=== PATIENT | female | born 1940 | race Caucasian/White ===

== ENCOUNTER 2022-11-03 01:03 | Inpatient (IN) | payer MEDICARE ==
--- NOTE | 2022-11-03 01:21 | ED ---
Abdominal Pain HPI - General Stated Complaint: Bowel Obstruction Time Seen by Provider: 11/03/22 01:15 - History of Present Illness Initial Comments: 82-year-old female with past history of hypertension and hyperlipidemia presents to the emergency department as a transfer from [facility]. States that she started having abdominal pain at 3 AM in the morning. She didn't want to go to the ER due to cost reasons and therefore waited until the afternoon 1 her primary care doctor was able to get her in. They were concerned and told her to go into the emergency department for evaluation. She states that she was having significant periumbilical abdominal pain that radiated to the left and right. Laboratory studies were conducted and a CT was performed. White blood cell count 5. Hemoglobin 13.9. Sodium was 134. Urinalysis demonstrated 3+ ketones but no other findings. CT was performed which demonstrated multiple dilated small bowel loops with air-fluid level suggestive of partial mechanical obstruction. Transition point not seen. She was given 4 mg of morphine and 4 mg of Zofran. She did have vomiting prior to going into the emergency department however has been relatively pain free and nausea free since medication administration. He continues to have bowel movements. No black or bloody stools. No fevers. No chest pain. No urinary complaints. No other alleviating, precipitating or modifying factors - Related Data Home Medications Medication Instructions Recorded Confirmed Simvastatin [Zocor] 10 mg PO PC-LUNCH 07/18/17 11/03/22 Calcium Carbonate [Calcium] 600 mg PO DAILY 11/03/22 11/03/22 Losartan/Hydrochlorothiazide 1 tab PO DAILY 11/03/22 11/03/22 [Hyzaar 100-12.5 Tablet] Multivitamins, Thera [Multivitamin 1 tab PO DAILY 11/03/22 11/03/22 (formulary)] Allergies Allergy/AdvReac Type Severity Reaction Status Date / Time sulfamethoxazole Allergy Fingers Verified 11/08/22 14:36 [From Bactrim] went numb, nausea, vomiting, dizziness trimethoprim [From Bactrim] Allergy Fingers Verified 11/08/22 14:36 went numb, nausea, vomiting, dizziness Review of Systems ROS Statement: Those systems with pertinent positive or pertinent negative responses have been documented in the HPI. ROS Other: All systems not noted in ROS Statement are negative. Past Medical History Past Medical History: Hyperlipidemia, Hypertension History of Any Multi-Drug Resistant Organisms: ESBL Date of last positivie culture/infection: e.coli 2017 MDRO Source:: urine Past Surgical History: Bladder Surgery, Hysterectomy, Tubal Ligation Additional Past Surgical History / Comment(s): vaginal/rectal , left sided tumor removal Past Anesthesia/Blood Transfusion Reactions: No Reported Reaction Past Psychological History: No Psychological Hx Reported Past Alcohol Use History: None Reported Past Drug Use History: None Reported General Exam General appearance: alert, in no apparent distress Head exam: Present: atraumatic, normocephalic, normal inspection Eye exam: Present: normal appearance, PERRL, EOMI. Absent: scleral icterus, conjunctival injection, periorbital swelling ENT exam: Present: normal exam, mucous membranes moist Neck exam: Present: normal inspection. Absent: tenderness, meningismus, lymphadenopathy Respiratory exam: Present: normal lung sounds bilaterally. Absent: respiratory distress, wheezes, rales, rhonchi, stridor Cardiovascular Exam: Present: regular rate, normal rhythm, normal heart sounds. Absent: systolic murmur, diastolic murmur, rubs, gallop, clicks GI/Abdominal exam: Present: soft, normal bowel sounds. Absent: distended, tenderness, guarding, rebound, rigid Extremities exam: Present: normal inspection, full ROM, normal capillary refill. Absent: tenderness, pedal edema, joint swelling, calf tenderness Back exam: Present: normal inspection Neurological exam: Present: alert, oriented X3, CN II-XII intact Psychiatric exam: Present: normal affect, normal mood Skin exam: Present: warm, dry, intact, normal color. Absent: rash Course Vital Signs 11/03/22 11/03/22 01:14 02:00 Temperature 98.0 F 97.9 F Pulse Rate 71 Pulse Rate [ 65 Pulse Oximetery ] Respiratory 16 17 Rate Blood Pressure 144/75 Blood Pressure 150/70 [Left Arm] O2 Sat by Pulse 99 100 Oximetry Medical Decision Making - Medical Decision Making Was pt. sent in by a medical professional or institution (, PA, LITIGATION MANAGER, urgent care, hospital, or care home...) When possible be specific @ -[facility] Did you speak to anyone other than the patient for history (EMS, parent, family, police, friend...)? What history was obtained from this source @ -transferring doc Did you review nursing and triage notes (agree or disagree)? Why? @ -I reviewed and agree with nursing and triage notes Were old charts reviewed (outside hosp., previous admission, EMS record, old EKG, old radiological studies, urgent care reports/EKG's, care home records)? Report findings @ -charts were reviewed from today from outside hospital Differential Diagnosis (chest pain, altered mental status, abdominal pain women, abdominal pain men, vaginal bleeding, weakness, fever, dyspnea, syncope, headache, dizziness, GI bleed, back pain, seizure, CVA, palpatations, mental health, musculoskeletal)? @ SBO, colonic mass, scar tissue, ileus EKG interpreted by me (3pts min.). @ -No X-rays interpreted by me (1pt min.). @ -Not done CT interpreted by me (1pt min.). @ -None done U/S interpreted by me (1pt. min.). @ -None done What testing was considered but not performed or refused? (CT, X-rays, U/S, labs)? Why? @ -None What meds were considered but not given or refused? Why? @ -Pain meds but patient resting comfortably right now Did you discuss the management of the patient with other professionals (professionals i.e. , PA, LITIGATION MANAGER, lab, RT, psych nurse, social service coordinator, apartment rental agent, teacher, chief risk officer, pillowcase cutter)? Give summary @ -Dr. Castellanos Was smoking cessation discussed for >3mins.? @ -No Was critical care preformed (if so, how long)? @ -No Were there social determinants of health that impacted care today? How? (Homelessness, low income, unemployed, alcoholism, drug addiction, transportation, low edu. Level, literacy, decrease access to med. care, half-way, rehab)? @ -low income - patient did not go to the hospital when pain started Was there de-escalation of care discussed even if they declined (Discuss DNR or withdrawal of care, Hospice)? DNR status @ -No What co-morbidities impacted this encounter? (DM, HTN, Smoking, COPD, CAD, Cancer, CVA, ARF, Chemo, Hep., AIDS, mental health diagnosis, sleep apnea, morbid obesity)? @ -None Was patient admitted / discharged? Hospital course, mention meds given and route, prescriptions, significant lab abnormalities, going to OR and other pertinent info. Upon arrival patient was placed into room 15. I did review the patient transfer record. Called and spoke with Dr. Castellanos who requested that the patient be admitted to medicine with surgery on consult. We did hold off on NG tube at this time however patient remains nothing by mouth Undiagnosed new problem with uncertain prognosis? @ -Yes Drug Therapy requiring intensive monitoring for toxicity (Heparin, Nitro, Insulin, Cardizem)? @ -No Were any procedures done? @ -No Diagnosis/symptom? @ -acute sbo Acute, or Chronic, or Acute on Chronic? @ -acute Uncomplicated (without systemic symptoms) or Complicated (systemic symptoms)? @ -complicated Side effects of treatment? @ -None Exacerbation, Progression, or Severe Exacerbation? @ -No Poses a threat to life or bodily function? How? (Chest pain, [place], [place], pneumonia, PE, COPD, DKA, ARF, appy, cholecystitis, CVA, Diverticulitis, Homicidal, Suicidal, threat to staff... and all critical care pts) @ -Yes - Lab Data Result diagrams: 11/09/22 06:04 11/11/22 05:44 Disposition Clinical Impression: Small bowel obstruction, Nausea and vomiting, Abdominal pain Disposition: ADMITTED IP TO THIS HOSP Condition: Stable Is patient prescribed a controlled substance at d/c from ED?: No Time of Disposition: 01:38 Decision to Admit Reason: Admit from EC Decision Date: 11/03/22 Decision Time: 01:38
[2022-11-03] MEDS ORDERED: MORPHINE SULFATE 4 MG/ML SYRINGE IV PRN (01:38)
[2022-11-03] MEDS ORDERED: NALOXONE 0.4 MG/ML 1 ML VIAL IV PRN (01:38)
[2022-11-03] MEDS: SODIUM CHLORIDE 0.9% 1,000 ML IV SCH ×2 (01:47→02:38)
[2022-11-03 10:26] LABS: HCT 41.9 % (34.0-46.0); MCH 29.1 pg (25.0-35.0); MCHC 33.3 g/dL (31.0-37.0); MCV 87.4 fL (80.0-100.0); Mean Platelet Volume 7.5; Platelet Count 216 k/uL (150-450); RDW 12.9 % (11.5-15.5); WBC 4.2 k/uL (3.8-10.6)
[2022-11-03 10:44] LABS: ALT 21 U/L (4-34); AST 27 U/L (14-36); African American GFR (CKD) >90 (>60 ml/min/1.73 sqM); Albumin 4.1 g/dL (3.5-5.0); Albumin/Globulin Ratio 1.6; Alkaline Phosphatase 74 U/L (38-126); Anion Gap 11 mmol/L; Blood Urea Nitrogen 10 mg/dL (7-17); Calcium 8.5 mg/dL (8.4-10.2); Carbon Dioxide 22 mmol/L (22-30); Chloride 101 mmol/L (98-107); Globulin 2.5 g/dL; Glucose 106 mg/dL (74-99); Non-African American GFR(CKD) 89 (>60 ml/min/1.73 sqM); Potassium 3.7 mmol/L (3.5-5.1); Sodium 134 mmol/L (137-145); Total Bilirubin 0.6 mg/dL (0.2-1.3); Total Protein 6.6 g/dL (6.3-8.2)
[2022-11-03] MEDS: ENOXAPARIN 40 MG/0.4 ML SYRINGE SQ SCH (11:33)
--- NOTE | 2022-11-03 12:27 | P.GSCN ---
History of Present Illness Consult date: 11/03/22 History of present illness: CHIEF COMPLAINT: Abdominal pain HISTORY OF PRESENT ILLNESS: This is a 82-year-old female who initially presented to [facility] due to abdominal pain. Patient reports that she had abdomen pain around the umbilical area. She's been having nausea and vomiting. The pain started yesterday. However she did report decreased appetite on Sunday. She initially thought she may have had food poisoning after eating Malay on Sunday. However she continued to have increased lower abdominal pain. She hasn't stopped having flatus. At her last bowel movement was on Sunday. Patient denies any prior history of bowel obstruction. Her past abdominal surgical history includes a bladder suspension repair of vaginal prolapse. Hysterectomy and tubal ligation. Patient had a computed tomography scan abdomen and pelvis at [place] that showed multiple dilated small bowel loops with air-fluid levels suggestive partial mechanical obstruction. Transition point not seen. Minimal free fluid in the abdomen. Patient reports that she is feeling better today than yesterday. Her pain and nausea are worse with walking. Reports no further vomiting. PAST MEDICAL HISTORY: See below PAST SURGICAL HISTORY: See below MEDICATIONS: See below ALLERGIES: See below SOCIAL HISTORY: No illicit drug use. REVIEW OF SYSTEMS: CONSTITUTIONAL: Denies fever or chills. HEENT: Denies blurred vision, vision changes, or eye pain. Denies hemoptysis CARDIOVASCULAR: Denies chest pain or pressure. RESPIRATORY: No shortness of breath. GASTROINTESTINAL: See HPI for pertinent findings HEMATOLOGIC: Denies bleeding disorders. GENITOURINARY: Denies any blood in urine or increased urinary frequency. SKIN: Denies pruitis. Denies rash. PHYSICAL EXAM: VITAL SIGNS: Reviewed GENERAL: Well-developed in no acute distress. HEENT: No sclera icterus. Extraocular movements grossly intact. Moist buccal mucosa. Head is atraumatic, normocephalic. No nasal drainage. ABDOMEN: Soft. Mildly distended. Tenderness on palpation of the lower mid abdomen below the umbilicus NEUROLOGIC: Alert and oriented. Cranial nerves II through XII grossly intact. LABORATORY DATA: WBC is 4.2 Hgb 14.0 platelets 216 Sodium 134 potassium 3.7 creatinine 0.54 LFTs normal IMAGING: Computed tomography scan findings as stated above ASSESSMENT: 1. Partial mechanical small bowel obstruction 2. History of multiple abdominal surgeries PLAN: -Keep patient nothing by mouth -Continue IV fluids -Continue pain medication and antiemetics as needed -Encourage patient to ambulate -If patient has increasing pain or nausea with vomiting we'll need to place NG tube -Further recommendations forthcoming prescription Physician Housekeeper/Custodian/Laundry Worker note has been reviewed by physician. Signing provider agrees with the documented findings, assessment, and plan of care. I have personally seen and examined the patient, reviewed the LEGAL PARAPROFESSIONAL /PAs history, exam and MDM and agree with the assessment and plan as written. Based on total visit time, I have performed more than 50% of the visit. As above: Patient with small bowel obstruction based on CAT scan at outside institution. She is feeling much better today. She did have a episode of emesis today. Denies bloating. She had a small bowel movement today. Keep nothing by mouth. Repeat abdominal x-rays tomorrow. If symptoms persist we'll plan Gastrografin small bowel series on Sunday. Past Medical History Past Medical History: Hyperlipidemia, Hypertension History of Any Multi-Drug Resistant Organisms: ESBL Year Discovered:: e.coli 2017 MDRO Source:: urine Past Surgical History: Bladder Surgery, Hysterectomy, Tubal Ligation Additional Past Surgical History / Comment(s): vaginal/rectal , left sided tumor removal Past Anesthesia/Blood Transfusion Reactions: No Reported Reaction Past Psychological History: No Psychological Hx Reported Past Alcohol Use History: None Reported Past Drug Use History: None Reported Medications and Allergies Home Medications Medication Instructions Recorded Confirmed Type Simvastatin [Zocor] 10 mg PO PC-LUNCH 07/18/17 11/03/22 History Calcium Carbonate [Calcium] 600 mg PO DAILY 11/03/22 11/03/22 History Losartan/Hydrochlorothiazide 1 tab PO DAILY 11/03/22 11/03/22 History [Hyzaar 100-12.5 Tablet] Multivitamins, Thera [Multivitamin 1 tab PO DAILY 11/03/22 11/03/22 History (formulary)] Allergies Allergy/AdvReac Type Severity Reaction Status Date / Time sulfamethoxazole Allergy Fingers Verified 11/03/22 08:07 [From Bactrim] went numb, nausea, vomiting, dizziness trimethoprim [From Bactrim] Allergy Fingers Verified 11/03/22 08:07 went numb, nausea, vomiting, dizziness Surgical - Exam Vital Signs Temp Pulse Resp BP Pulse Ox 98.0 F 71 16 144/75 99 11/03/22 01:14 11/03/22 01:14 11/03/22 01:14 11/03/22 01:14 11/03/22 01:14 Results - Labs 11/03/22 09:40 11/03/22 09:40 Abnormal Lab Results - Last 24 Hours (Table) 11/03/22 Range/Units 09:40 Sodium 134 L (137-145) mmol/L Glucose 106 H (74-99) mg/dL Diabetes panel 11/03/22 Range/Units 09:40 Sodium 134 L (137-145) mmol/L Potassium 3.7 (3.5-5.1) mmol/L Chloride 101 (98-107) mmol/L Carbon Dioxide 22 (22-30) mmol/L BUN 10 (7-17) mg/dL Creatinine 0.54 (0.52-1.04) mg/dL Glucose 106 H (74-99) mg/dL Calcium 8.5 (8.4-10.2) mg/dL AST 27 (14-36) U/L ALT 21 (4-34) U/L Alkaline Phosphatase 74 (38-126) U/L Total Protein 6.6 (6.3-8.2) g/dL Albumin 4.1 (3.5-5.0) g/dL Calcium panel 11/03/22 Range/Units 09:40 Calcium 8.5 (8.4-10.2) mg/dL Albumin 4.1 (3.5-5.0) g/dL Pituitary panel 11/03/22 Range/Units 09:40 Sodium 134 L (137-145) mmol/L Potassium 3.7 (3.5-5.1) mmol/L Chloride 101 (98-107) mmol/L Carbon Dioxide 22 (22-30) mmol/L BUN 10 (7-17) mg/dL Creatinine 0.54 (0.52-1.04) mg/dL Glucose 106 H (74-99) mg/dL Calcium 8.5 (8.4-10.2) mg/dL Adrenal panel 11/03/22 Range/Units 09:40 Sodium 134 L (137-145) mmol/L Potassium 3.7 (3.5-5.1) mmol/L Chloride 101 (98-107) mmol/L Carbon Dioxide 22 (22-30) mmol/L BUN 10 (7-17) mg/dL Creatinine 0.54 (0.52-1.04) mg/dL Glucose 106 H (74-99) mg/dL Calcium 8.5 (8.4-10.2) mg/dL Total Bilirubin 0.6 (0.2-1.3) mg/dL AST 27 (14-36) U/L ALT 21 (4-34) U/L Alkaline Phosphatase 74 (38-126) U/L Total Protein 6.6 (6.3-8.2) g/dL Albumin 4.1 (3.5-5.0) g/dL
--- NOTE | 2022-11-03 15:05 | P.HPIM ---
History of Present Illness H&P Date: 11/03/22 Chief Complaint: Abdominal pain This is a pleasant 82-year-old patient who follows with Dr. Nathan. Chronic stable medical conditions include hypertension, hyperlipidemia. 2 days patient had not been feeling well. She thought it was a viral bug. Subsequently around 2:00 in the morning she's developed increasing abdominal pain. With nausea vomiting. No fever no chills. Normally has a bowel movement every day. Small bowel in the morning.. Presented to [facility]. Computed tomography scan of the abdomen showed multiple dilated small bowel loops. Air-fluid levels. No transition point was seen. Patient was transferred down here for further intervention. General surgery was consulted. Review of systems: GEN.: Tired EYES: None HEENT: None NECK: None RESPIRATORY: None CARDIOVASCULAR: None GASTROINTESTINAL: As above GENITOURINARY: None MUSCULOSKELETAL: Joint pains LYMPHATICS: None HEMATOLOGICAL: None PSYCHIATRY: None NEUROLOGICAL: None Past medical history to include: Hyperlipidemia, hypertension, Social history: . Lives with her . No smoking or alcohol. Physical examination: VITAL SIGNS: 97.9, 62, 18, 162/64, 98% room air GENERAL: BMI 22.9, declining but awake slightly anxious. EYES: Pupils equal. Conjunctiva normal. HEENT: External appearance of nose and ears normal, oral cavity grossly normal. NECK: JVD not raised; masses not palpable. HEART: First and second heart sounds are normal; no edema. LUNGS: Respiratory rate normal; clear to auscultation. ABDOMEN: Soft, some minimal tenderness, no guarding rigidity., liver spleen not palpable, no masses palpable. PSYCH: Alert and oriented x3; mood and affect normal. MUSCULOSKELETAL:No Clubbing/cyanosis;muscles-grossly intact. OA NEUROLOGICAL: Cranial nerves grossly intact; no facial asymmetry, power and sensation grossly intact. LYMPHATICS: No lymph nodes palpable in the axilla and neck INVESTIGATIONS, reviewed in the clinical context: Blood work from [facility] shows: Urine drug screen negative Sodium 134 potassium 4.4 creatinine 0.5 White count 5 hemoglobin 13.9 platelets 216 UA: Ketones 3+ Computed tomography scan multiple dilated small bowel loops with air-fluid levels. No transition point. Assessment and plan: -Acute small bowel obstruction with air-fluid levels. No transition point. Nothing by mouth. IV fluids. Surgery consulted. Patient may need an NG tube to suction. -Essential hypertension Catapres patch 0.1 mg -Hyperlipidemia Zocor Nothing by mouth. IV fluids. Catapres patch. Subcu Lovenox. Care was discu ssed with the patient. Questions answered. Surgery consulted. Past Medical History Past Medical History: Hyperlipidemia, Hypertension History of Any Multi-Drug Resistant Organisms: ESBL Date of last positivie culture/infection: e.coli 2017 MDRO Source:: urine Past Surgical History: Bladder Surgery, Hysterectomy, Tubal Ligation Additional Past Surgical History / Comment(s): vaginal/rectal , left sided tumor removal Past Anesthesia/Blood Transfusion Reactions: No Reported Reaction Past Psychological History: No Psychological Hx Reported Past Alcohol Use History: None Reported Past Drug Use History: None Reported Medications and Allergies Home Medications Medication Instructions Recorded Confirmed Type Simvastatin [Zocor] 10 mg PO PC-LUNCH 07/18/17 11/03/22 History Calcium Carbonate [Calcium] 600 mg PO DAILY 11/03/22 11/03/22 History Losartan/Hydrochlorothiazide 1 tab PO DAILY 11/03/22 11/03/22 History [Hyzaar 100-12.5 Tablet] Multivitamins, Thera [Multivitamin 1 tab PO DAILY 11/03/22 11/03/22 History (formulary)] Allergies Allergy/AdvReac Type Severity Reaction Status Date / Time sulfamethoxazole Allergy Fingers Verified 11/03/22 08:07 [From Bactrim] went numb, nausea, vomiting, dizziness trimethoprim [From Bactrim] Allergy Fingers Verified 11/03/22 08:07 went numb, nausea, vomiting, dizziness Physical Exam Vitals: Vital Signs Temp Pulse Pulse Resp BP BP Pulse Ox 11/03/22 07:10 97.9 F 62 18 162/64 98 11/03/22 02:00 97.9 F 65 17 150/70 100 11/03/22 01:14 98.0 F 71 16 144/75 99 Intake and Output 11/02/22 11/03/22 11/03/22 22:59 06:59 14:59 Intake Total 300 Balance 300 Intake: Intake, IV Titration 300 Amount Sodium Chloride 0.9% 1, 300 000 ml @ 75 mls/hr IV . [id number] [facility] Rx#:[id number] Other: Weight 57.606 kg Results CBC & Chem 7: 11/03/22 09:40 11/03/22 09:40 Thrombosis Risk Factor Assmnt - Choose All That Apply Any of the Below Risk Factors Present?: No Other Risk Factors: Yes Each Risk Factor Represents 3 Points: Age 75 years or older Other congenital or acquired thrombophilia - If yes, enter type in comment: No Thrombosis Risk Factor Assessment Total Risk Factor Score: 3 Thrombosis Risk Factor Assessment Level: Moderate Risk
[2022-11-03] MEDS ORDERED: cloNIDine 0.1 MG/24HR PATCH TRANSDERM SCH (16:00)
[2022-11-03] MEDS: ONDANSETRON 4 MG/2 ML VIAL IVP PRN (20:09)
[2022-11-04] MEDS: SODIUM CHLORIDE 0.9% 1,000 ML IV SCH ×2 (03:23→16:28)
--- NOTE | 2022-11-04 07:45 | XR ---
EXAMINATION TYPE: XR abdomen 2V DATE OF EXAM: 11/04/2022 6:25 AM INDICATION: Patient age:Female; 82 years old; Reason for study: F/U partial SBO; COMPARISON: None. TECHNIQUE: Two views of the abdomen were obtained. FINDINGS: Few air-fluid levels are visualized, mildly prominent left upper abdomen 3.2 cm wide small bowel loop with gaseous distention. Dilated loops of small bowel within the seen. IMPRESSION: Few air-fluid levels without at least one gaseous dilated small bowel loop. Attention follow-up imagi ng.
[2022-11-04] MEDS: ENOXAPARIN 40 MG/0.4 ML SYRINGE SQ SCH (08:36)
[2022-11-04 08:54] LABS: Basophils # (A) 0.01 X 10*3/uL (0.00-0.10); Basophils % (A) 0.2 %; Eosinophils # (A) 0 X 10*3/uL (0.04-0.35); Eosinophils % (A) 0 %; HCT 40.4 % (37.2-46.3); HGB 13.2 g/dL (12.0-15.0); Immature Grans, Automated 0.2 %; Lymphocytes # (A) 0.63 X 10*3/uL (0.90-5.00); Lymphocytes % (A) 13.3 %; MCH 28.8 pg (27.0-32.0); MCHC 32.7 g/dL (32.0-37.0); Mean Platelet Volume 10.8 fL (9.5-12.2); Monocytes # (A) 0.46 X 10*3/uL (0.20-1.00); Monocytes % (A) 9.7 %; NRBC Per 100 WBC 0 /100 WBCS (0.0-0.0); Neutrophils # (A) 3.64 X 10*3/uL (1.80-7.70); Neutrophils % (A) 76.6 %; Platelet Count 226 X 10*3/uL (140-440); RBC 4.59 X 10*6/uL (4.10-5.20); RDW 13.2 % (11.5-14.5); WBC 4.75 X 10*3/uL (4.50-10.00)
[2022-11-04 09:27] LABS: African American GFR (CKD) 94.8 (60.0-200.0); Anion Gap 12.7 mmol/L (10.00-18.00); BUN/Creat Ratio 13.71 Ratio (12.00-20.00); Blood Urea Nitrogen 9.6 mg/dL (9.0-27.0); Calcium 8.8 mg/dL (8.7-10.3); Carbon Dioxide 20.3 mmol/L (20.0-27.5); Non-African American GFR(CKD) 81.8 (60.0-200.0); Potassium 3.9 mmol/L (3.5-5.5)
--- NOTE | 2022-11-04 14:06 | P.PN ---
Subjective This is a pleasant 82-year-old patient who follows with Dr. Nathan. Chronic stable medical conditions include hypertension, hyperlipidemia. 2 days patient had not been feeling well. She thought it was a viral bug. Subsequently around 2:00 in the morning she's developed increasing abdominal pain. With nausea vomiting. No fever no chills. Normally has a bowel movement every day. Small bowel in the morning.. Presented to [facility]. Computed tomography scan of the abdomen showed multiple dilated small bowel loops. Air-fluid level s. No transition point was seen. Patient was transferred down here for further intervention. General surgery was consulted. 11/04/2021 Patient presents with abdominal pain from [facility]. Patient today sitting in bed comfortable, she denies significant abdominal pain however she remains nothing by mouth. Also she denies melena in her bowel, since admission. She vomited once with a clear liquid last night but as above her abdominal pain is improving. Blood pressure is still high therefore we increased her clonidine patch 0.1-0.2 mg. Surgery team on the case Objective - Vital Signs Vital signs: Vital Signs Temp 98.0 F 11/04/22 06:59 Pulse 69 11/04/22 06:59 Resp 17 11/04/22 06:59 BP 164/73 11/04/22 06:59 Pulse Ox 96 11/04/22 06:59 FiO2 Intake & Output 11/03/22 11/04/22 11/04/22 18:59 06:59 18:59 Other: # Voids 2 1 - Exam GENERAL: The patient is alert and oriented x3, not in any acute distress. Well developed, well nourished. HEENT: Pupils are round and equally reacting to light. EOMI. No scleral icterus. No conjunctival pallor. Normocephalic, atraumatic. No pharyngeal erythema. No thyromegaly. CARDIOVASCULAR: S1 and S2 present. No murmurs, rubs, or gallops. PULMONARY: Chest is clear to auscultation, no wheezing or crackles. ABDOMEN: Soft, nontender, nondistended, normoactive bowel sounds. No palpable organomegaly. MUSCULOSKELETAL: No joint swelling or deformity. EXTREMITIES: No cyanosis, clubbing, or pedal edema. NEUROLOGICAL: Gross neurological examination did not reveal any focal deficits. SKIN: No rashes. no petechiae. - Labs CBC & Chem 7: 11/04/22 03:31 11/04/22 03:31 Labs: Abnormal Lab Results - Last 24 Hours (Table) 11/04/22 11/04/22 Range/Units 03: 03:31 Lymphocytes # 0.63 L (0.90-5.00) X 10*3/uL Eosinophils # 0 L (0.04-0.35) X 10*3/uL Sodium 134 L (135-145) mmol/L Assessment and Plan Assessment: -Acute small bowel obstruction with air-fluid levels. No transition point. Nothing by mouth. IV fluids. Surgery consulted. Patient may need an NG tube to suction. -Essential hypertension Catapres patch 0.2 mg -Hyperlipidemia Zocor
[2022-11-04] MEDS ORDERED: cloNIDine 0.2 MG/24HR PATCH TRANSDERM SCH (15:00)
[2022-11-04] MEDS: ONDANSETRON 4 MG/2 ML VIAL IVP PRN ×2 (16:37→23:41)
--- NOTE | 2022-11-04 16:37 | P.PN ---
Subjective Progress Note Date: 11/04/22 CHIEF COMPLAINT: Bowel obstruction HISTORY OF PRESENT ILLNESS: The patient is a 82-year-old female admitted for small bowel obstruction. Patient complaining of nausea. She is nothing by mouth. Patient is on morphine which may exacerbate nausea. She was placed on clonidine for hypertension. ROS: Has reports of nausea and vomiting. No bowel movements. No fevers or chills. No new chest pain. No productive sputum PHYSICAL EXAM: VITAL SIGNS: Reviewed CONSTITUTIONAL: Well developed and in no acute distress. EYES: Conjuctivae without sclera icterus. Extraocular movements grossly intact. HEAD, EARS, NOSE, THROAT: Moist buccal mucosa. Head is atraumatic, normocephalic. Hears conversational speech. No nasal drainage. RESPIRATORY: Non-labored respirations and equal bilateral excursions. CARDIOVASCULAR: Palpable 2+ radial pulses. ABDOMEN: No peritonitis. Has mild generalized MUSCULOSKELETAL: No gross deformity of the lower extremities noted. No clubbing. No cyanosis. SKIN: Good skin turgor. Well perfused. NEUROLOGIC: Cranial nerves II through XII grossly intact. No focal or lateralizing signs. PSYCH: Appropriate affect. Alert and oriented to person, place and time. CLINICAL LABS: Reviewed. WBC normal. Sodium at 134, low IMAGE: Abdominal x-ray reviewed with features with moderate stool burden. No free air. REPORT: Abdominal x-ray demonstrates gaseous distention. No bowel obstruction noted. ASSESSMENT: 1. Bowel obstruction versus ileus 2. Hyponatremia 3. Nausea and vomiting 4. Hypertensive heart disease PLAN: 1. Recommend scheduled nonnarcotic pain Tylenol management as narcotics may exacerbate nausea 2. May have ice chips and popsicles. 3. She has moderate stool burden and may benefit from laxatives. Objective - Vital Signs Vital signs: Vital Signs Temp 97.5 F L 11/04/22 13:42 Pulse 76 11/04/22 13:42 Resp 18 11/04/22 13:42 BP 143/63 11/04/22 13:42 Pulse Ox 99 11/04/22 13:42 FiO2 Intake & Output 11/03/22 11/04/22 11/04/22 18:59 06:59 18:59 Other: # Voids 2 1 - Labs CBC & Chem 7: 11/04/22 03:31 11/04/22 03:31 Labs: Abnormal Lab Results - Last 24 Hours (Table) 11/04/22 11/04/22 Range/Units 03:31 03:31 Lymphocytes # 0.63 L (0.90-5.00) X 10*3/uL Eosinophils # 0 L (0.04-0.35) X 10*3/uL Sodium 134 L (135-145) mmol/L
[2022-11-04] MEDS: ACETAMINOPHEN IV (For NPO) 1,000 MG in EMPTY BAG 1 BAG IVPB SCH ×2 (17:23→23:40)
[2022-11-05] MEDS: SODIUM CHLORIDE 0.9% 1,000 ML IV SCH ×2 (06:28→21:04)
[2022-11-05] MEDS: ACETAMINOPHEN IV (For NPO) 1,000 MG in EMPTY BAG 1 BAG IVPB SCH ×3 (06:28→19:01)
[2022-11-05] MEDS: ENOXAPARIN 40 MG/0.4 ML SYRINGE SQ SCH (08:55)
[2022-11-05] MEDS: LACTULOSE 20 GM/30 ML CUP PO SCH ×2 (08:55→21:04)
[2022-11-05 08:58] LABS: Basophils # (A) 0.01 X 10*3/uL (0.00-0.10); Basophils % (A) 0.2 %; Eosinophils # (A) 0 X 10*3/uL (0.04-0.35); Eosinophils % (A) 0 %; HCT 37.7 % (37.2-46.3); HGB 12.7 g/dL (12.0-15.0); Immature Grans, Automated 0.2 %; Lymphocytes # (A) 0.93 X 10*3/uL (0.90-5.00); MCH 28.7 pg (27.0-32.0); MCHC 33.7 g/dL (32.0-37.0); MCV 85.3 fL (80.0-97.0); Mean Platelet Volume 10.7 fL (9.5-12.2); Monocytes # (A) 0.45 X 10*3/uL (0.20-1.00); Monocytes % (A) 11.1 %; NRBC Per 100 WBC 0 /100 WBCS (0.0-0.0); Neutrophils # (A) 2.64 X 10*3/uL (1.80-7.70); Neutrophils % (A) 65.5 %; Platelet Count 231 X 10*3/uL (140-440); RBC 4.42 X 10*6/uL (4.10-5.20); WBC 4.04 X 10*3/uL (4.50-10.00)
[2022-11-05 09:12] LABS: African American GFR (CKD) 102.3 (60.0-200.0); BUN/Creat Ratio 22.3 Ratio (12.00-20.00); Blood Urea Nitrogen 12.4 mg/dL (9.0-27.0); Calcium 8.9 mg/dL (8.7-10.3); Non-African American GFR(CKD) 88.3 (60.0-200.0); Potassium 3.4 mmol/L (3.5-5.5)
[2022-11-05] MEDS ORDERED: Potassium Replacement Protocol 1 EACH MISC MISCELLANE PRN (12:00)
--- NOTE | 2022-11-05 12:00 | P.PN ---
Subjective This is a pleasant 82-year-old patient who follows with Dr. Nathan. Chronic stable medical conditions include hypertension, hyperlipidemia. 2 days patient had not been feeling well. She thought it was a viral bug. Subsequently around 2:00 in the morning she's developed increasing abdominal pain. With nausea vomiting. No fever no chills. Normally has a bowel movement every day. Small bowel in the morning.. Presented to [facility]. Computed tomography scan of the abdomen showed multiple dilated small bowel loops. Air-fluid level s. No transition point was seen. Patient was transferred down here for further intervention. General surgery was consulted. 11/04/2021 Patient presents with abdominal pain from [facility]. Patient today sitting in bed comfortable, she denies significant abdominal pain however she remains nothing by mouth. Also she denies melena in her bowel, since admission. She vomited once with a clear liquid last night but as above her abdominal pain is improving. Blood pressure is still high therefore we increased her clonidine patch 0.1-0.2 mg. Surgery team on the case 11/05/2022 Patient still complains from upper abdominal pain this morning, she's been having burning and some vomiting with bile. About twice earlier this morning. No bowel movement, she was started on lactulose Genetics on IV fluids, pain was controlled. Blood pressure is better controlled after increasing the dose of clonidine patch. Objective - Vital Signs Vital signs: Vital Signs Temp 97.6 F 11/05/22 07:08 Pulse 71 11/05/22 07:08 Resp 16 11/05/22 07:08 BP 129/67 11/05/22 07:08 Pulse Ox 98 11/05/22 07:08 FiO2 Intake & Output 11/04/22 11/05/22 11/05/22 17:59 06:59 18:59 Intake Total Balance Intake: Intake, IV Titration Amount ACETAMINOPHEN IV (For NPO ) 1,000 mg In Empty Bag 1 bag @ 400 mls/hr IVPB Q6HR SHALA Rx#:[id number] Sodium Chloride 0.9% 1, 000 ml @ 75 mls/hr IV . [id number] SHALA Rx#:[id number] Other: # Voids - Exam GENERAL: The patient is alert and oriented x3, not in any acute distress. Well developed, well nourished. HEENT: Pupils are round and equally reacting to light. EOMI. No scleral icterus. No conjunctival pallor. Normocephalic, atraumatic. No pharyngeal erythema. No thyromegaly. CARDIOVASCULAR: S1 and S2 present. No murmurs, rubs, or gallops. PULMONARY: Chest is clear to auscultation, no wheezing or crackles. ABDOMEN: Soft, nontender, nondistended, normoactive bowel sounds. No palpable organomegaly. MUSCULOSKELETAL: No joint swelling or deformity. EXTREMITIES: No cyanosis, clubbing, or pedal edema. NEUROLOGICAL: Gross neurological examination did not reveal any focal deficits. SKIN: No rashes. no petechiae. - Labs CBC & Chem 7: 11/05/22 05:18 11/05/22 05:18 Labs: Abnormal Lab Results - Last 24 Hours (Table) 11/05/22 11/05/22 Range/Units 05:18 05:18 WBC 4.04 L (4.50-10.00) X 10*3/uL Eosinophils # 0 L (0.04-0.35) X 10*3/uL Potassium 3.4 L (3.5-5.5) mmol/L BUN/Creatinine Ratio 22.30 H (12.00-20.00) Ratio Assessment and Plan Assessment: -Acute small bowel obstruction with air-fluid levels. No transition point. Nothing by mouth. IV fluids. Surgery consulted. Patient may need an NG tube to suction. -Essential hypertension Catapres patch 0.2 mg -Hyperlipidemia Zocor Prophylaxis: Lovenox GI prophylaxis, Protonix
[2022-11-05] MEDS: ONDANSETRON 4 MG/2 ML VIAL IVP PRN (12:37)
[2022-11-05] MEDS: PANTOPRAZOLE 40 MG/10 ML VIAL IVP SCH (12:50)
--- NOTE | 2022-11-05 18:08 | CT ---
EXAMINATION TYPE: CT abdomen pelvis w con CT DLP: 730 mGycm, Automated exposure control for dose reduction was used. DATE OF EXAM: 11/05/2022 5:31 PM COMPARISON: Normal radiograph 11/04/2022 CLINICAL INDICATION:Female, 82 years old with history of Abdominal pain; nausea, vomiting TECHNIQUE: Axial CT of the abdomen and pelvis. Sagittal and coronal reformats were created on a [employer] workstation. Contrast used:100 mL of Isovue 300 with IV Contrast, Oral contrast used: without Oral Contrast FINDINGS: LOWER CHEST: Unremarkable ABDOMEN LIVER: Unremarkable GALLBLADDER AND BILE DUCTS: Unremarkable. PANCREAS: Unremarkable. SPLEEN: Unremarkable. ADRENAL GLANDS: Unremarkable. KIDNEYS AND URETERS: No evidence of hydronephrosis or renal calculus. The ureters are unremarkable. PELVIS BLADDER: Unremarkable REPRODUCTIVE: Uterus is atrophic versus surgically absent. ABDOMEN & PELVIS STOMACH AND BOWEL: Dilated, fluid-filled stomach. Multiple dilated fluid filled bowel loops measuring up to 3.3 cm in width. Abrupt transition point seen within the right lower quadrant (series [id number], brian [id number]) with collapse distal bowel loops. No evidence for pneumatosis. Air and fecal material are seen throughout the colon. Scattered diverticula are noted throughout the colon. PERITONEUM: No evidence of pneumoperitoneum. Trace free fluid noted within the pelvis, likely reactiv e. VASCULATURE: Moderate atherosclerotic calcifications are present throughout the abdominal aorta and i ts branches. No evidence of aortic aneurysm. MUSCULOSKELETAL: No acute osseous abnormalities. Severe disc degeneration changes are present through out the thoracolumbar spine. Degenerative changes of the hip joints bilaterally. LYMPH NODES: No gross evidence for lymphadenopathy. SOFT TISSUE/ABDOMINAL WALL: Focal soft tissue emphysema right anterior body wall, likely from injecti on. No acute abnormalities. Findings communicated to Dr. Orestes MD on 11/05/2022 6:[address] Tiny Palacios. IMPRESSION: 1. Dilated small bowel loops with transition point in the right lower quadrant, concerning for small bowel obstruction. 2. Trace ascites within the pelvis, likely reactive to #1. 3. Colonic diverticulosis and other incidental findings as detailed above.
[2022-11-05] MEDS ORDERED: BENZOCAINE SPRAY 1 CAN MUCOUS MEM PRN (19:07)
--- NOTE | 2022-11-05 21:00 | P.PN ---
Subjective Progress Note Date: 11/05/22 CHIEF COMPLAINT: Bowel obstruction HISTORY OF PRESENT ILLNESS: The patient is a 82-year-old female admitted for small bowel obstruction. She is ambulating in the hallways with her family. She reports nausea. She reports abdominal gas bloat. She reports her nausea has improved. She did have a small bowel movement after laxative. ROS: No fevers or chills. No new chest pain. No productive sputum PHYSICAL EXAM: VITAL SIGNS: Reviewed CONSTITUTIONAL: Well developed and in no acute distress. EYES: Conjuctivae without sclera icterus. Extraocular movements grossly intact. HEAD, EARS, NOSE, THROAT: Moist buccal mucosa. Head is atraumatic, normocephalic. Hears conversational speech. No nasal drainage. RESPIRATORY: Non-labored respirations and equal bilateral excursions. CARDIOVASCULAR: Palpable 2+ radial pulses. ABDOMEN: No peritonitis. Mild abdominal distention. MUSCULOSKELETAL: No gross deformity of the lower extremities noted. No clubbing. No cyanosis. SKIN: Good skin turgor. Well perfused. NEUROLOGIC: Cranial nerves II through XII grossly intact. No focal or lateralizing signs. PSYCH: Appropriate affect. Alert and oriented to person, place and time. CLINICAL LABS: Reviewed. WBC normal. Potassium is low at 3.4, hypokalemia ASSESSMENT: 1. Bowel obstruction versus ileus 2. Hyponatremia 3. Nausea and vomiting 4. Hypertensive heart disease PLAN: 1. Recommend CT of the abdomen and pelvis and she has persistent abdominal pain and nausea 2. May need placement of NG tube pending results of CT scan. ADDENDUM: Patient did have bilious emesis per nurse after assessment. Objective - Vital Signs Vital signs: Vital Signs Temp 97.8 F 11/05/22 19:33 Pulse 83 11/05/22 19:33 Resp 15 11/05/22 19:33 BP 165/65 11/05/22 19:33 Pulse Ox 97 11/05/22 19:33 FiO2 Intake & Output 11/05/22 11/05/22 11/06/22 06:59 18:59 06:59 Other: # Voids 4 # Bowel Movements 1 - Labs CBC & Chem 7: 11/05/22 05:18 11/05/22 05:18 Labs: Abnormal Lab Results - Last 24 Hours (Table) 03/12/23 03/12/23 Range/Units 05:18 05:18 WBC 4.04 L (4.50-10.00) X 10*3/uL Eosinophils # 0 L (0.04-0.35) X 10*3/uL Potassium 3.4 L (3.5-5.5) mmol/L BUN/Creatinine Ratio 22.30 H (12.00-20.00) Ratio
--- NOTE | 2022-11-05 21:03 | P.PN ---
Progress Note - Text Progress Note Date: 11/05/22 CT of the abdomen and pelvis reviewed with transition point along the right lower quadrant and findings of small bowel obstruction. This is my independent interpretation. Recommend NG tube placement.
[2022-11-06] MEDS: ACETAMINOPHEN IV (For NPO) 1,000 MG in EMPTY BAG 1 BAG IVPB SCH ×3 (00:37→12:09)
[2022-11-06] MEDS: PANTOPRAZOLE 40 MG/10 ML VIAL IVP SCH (07:50)
[2022-11-06] MEDS: LACTULOSE 20 GM/30 ML CUP PO SCH ×2 (07:51→20:17)
[2022-11-06] MEDS: ENOXAPARIN 40 MG/0.4 ML SYRINGE SQ SCH (07:51)
[2022-11-06] MEDS: SODIUM CHLORIDE 0.9% 1,000 ML IV SCH ×2 (07:53→23:06)
[2022-11-06 09:15] LABS: African American GFR (CKD) 105.9 (60.0-200.0); Anion Gap 15.4 mmol/L (10.00-18.00); Calcium 8.4 mg/dL (8.7-10.3); Carbon Dioxide 18.6 mmol/L (20.0-27.5); Non-African American GFR(CKD) 91.4 (60.0-200.0); Potassium 2.8 mmol/L (3.5-5.5)
[2022-11-06] MEDS ORDERED: Potassium Replacement Protocol 1 EACH MISC MISCELLANE PRN (09:25)
[2022-11-06] MEDS: POTASSIUM CHLORIDE 10 MEQ in WATER FOR INJECTION 1 100ML.BAG IVPB SCH ×6 (09:34→15:16)
--- NOTE | 2022-11-06 14:04 | P.PN ---
Subjective Progress Note Date: 11/06/22 CHIEF COMPLAINT: Abdominal pain HISTORY OF PRESENT ILLNESS: Patient had increased abdominal pain and vomiting yesterday. Computed tomography scan of abdomen and pelvis ordered which showed dilated small bowel loops with transition point in the right lower quadrant concerning for small bowel obstruction. Trace ascites within the pelvis likely reactive to the small bowel obstruction. Colonic diverticulosis and other incidental findings. Patient had NG tube placed. She had immediate 1 L output of bilious fluid. Currently NG tube has 150 mL bilious output patient does report she is passing gas. No bowel movement. She reports her pain has decreased and the nausea improved since placement of the NG tube. Afebrile. Sodium 137 potassium 2.8 creatinine 0.5 PHYSICAL EXAM: VITAL SIGNS: Reviewed. GENERAL: Well-developed in no acute distress. HEENT: No sclera icterus. Extraocular movements grossly intact. Moist buccal mucosa. Head is atraumatic, normocephalic. ABDOMEN: Soft. Mildly distended. Mild discomfort with palpation NEUROLOGIC: Alert and oriented. Cranial nerves II through XII grossly intact. ASSESSMENT: 1. Small bowel obstruction with transition point in the right lower quadrant 2. History of abdominal surgery 3. Hypokalemia PLAN: -Continue NG tube for decompression -Keep patient NPO except ice chips -Further recommendations forthcoming per surgeon -Medicine service replacing potassium -Continue IV fluids -Encourage patient to ambulate -Continue supportive care Physician Director Construction Services note has been reviewed by physician. Signing provider agrees with the documented findings, assessment, and plan of care. Objective - Vital Signs Vital signs: Vital Signs Temp 98.3 F 11/06/22 07:12 Pulse 67 11/06/22 07:12 Resp 16 11/06/22 07:12 BP 117/61 11/06/22 07:12 Pulse Ox 95 11/06/22 07:12 FiO2 Intake & Output 11/05/22 11/06/22 11/06/22 18:59 06:59 18:59 Other: # Voids 4 2 # Bowel Movements 1 - Labs CBC & Chem 7: 11/05/22 05:18 11/06/22 06:16 Labs: Abnormal Lab Results - Last 24 Hours (Table) 11/06/22 Range/Units 06:16 Potassium 2.8 L (3.5-5.5) mmol/L Carbon Dioxide 18.6 L (20.0-27.5) mmol/L Creatinine 0.5 L (0.6-1.5) mg/dL Glucose 69 L (70-110) mg/dL Calcium 8.4 L (8.7-10.3) mg/dL
[2022-11-07] MEDS: ENOXAPARIN 40 MG/0.4 ML SYRINGE SQ SCH (08:44)
[2022-11-07] MEDS: PANTOPRAZOLE 40 MG/10 ML VIAL IVP SCH (08:45)
[2022-11-07 09:18] LABS: Basophils # (A) 0.01 X 10*3/uL (0.00-0.10); Basophils % (A) 0.2 %; Eosinophils # (A) 0.02 X 10*3/uL (0.04-0.35); Eosinophils % (A) 0.5 %; HCT 33.7 % (37.2-46.3); HGB 11.2 g/dL (12.0-15.0); Immature Grans, Automated 0.5 %; Lymphocytes # (A) 0.96 X 10*3/uL (0.90-5.00); MCH 28.7 pg (27.0-32.0); MCHC 33.2 g/dL (32.0-37.0); MCV 86.4 fL (80.0-97.0); Mean Platelet Volume 10.7 fL (9.5-12.2); Monocytes # (A) 0.42 X 10*3/uL (0.20-1.00); Monocytes % (A) 10.1 %; NRBC Per 100 WBC 0 /100 WBCS (0.0-0.0); Neutrophils # (A) 2.74 X 10*3/uL (1.80-7.70); Neutrophils % (A) 65.7 %; Platelet Count 221 X 10*3/uL (140-440); RDW 13.3 % (11.5-14.5); WBC 4.17 X 10*3/uL (4.50-10.00)
[2022-11-07 09:29] LABS: African American GFR (CKD) 105.9 (60.0-200.0); Anion Gap 14.5 mmol/L (10.00-18.00); BUN/Creat Ratio 17.8 Ratio (12.00-20.00); Blood Urea Nitrogen 8.9 mg/dL (9.0-27.0); Calcium 8.3 mg/dL (8.7-10.3); Carbon Dioxide 17.5 mmol/L (20.0-27.5); Non-African American GFR(CKD) 91.4 (60.0-200.0); Potassium 3.6 mmol/L (3.5-5.5)
--- NOTE | 2022-11-07 10:02 | P.PN ---
Subjective Progress Note Date: 11/06/22 This is a pleasant 82-year-old patient who follows with Dr. Nathan. Chronic stable medical conditions include hypertension, hyperlipidemia. 2 days patient had not been feeling well. She thought it was a viral bug. Subsequently around 2:00 in the morning she's developed increasing abdominal pain. With nausea vomiting. No fever no chills. Normally has a bowel movement every day. Small bowel in the morning.. Presented to [facility]. Computed tomography scan of the abdomen showed multiple dilated small bowel loops. Air-fluid levels. No transition point was seen. Patient was transferred down here for further intervention. General surgery was consulted. 11/04/2021 Patient presents with abdominal pain from [facility]. Patient today sitting in bed comfortable, she denies significant abdominal pain however she remains nothing by mouth. Also she denies melena in her bowel, since admission. She vomited once with a clear liquid last night but as above her abdominal pain is improving. Blood pressure is still high therefore we increased her clonidine patch 0.1-0.2 mg. Surgery team on the case 11/05/2022 Patient still complains from upper abdominal pain this morning, she's been having burning and some vomiting with bile. About twice earlier this morning. No bowel movement, she was started on lactulose Genetics on IV fluids, pain was controlled. Blood pressure is better controlled after increasing the dose of clonidine patch. 11/06/2022 Patient is currently able to ambulate in the hallway. No complaints of abdominal pain. No nausea or vomiting. Patient has not passed flatus yet. Bowel sounds are present. Patient is currently nothing by mouth and is being c ontinued on IV hydration and pain medications as needed. Potassium level is 2.8 today which is being replaced. Patient has been afebrile. No cough or sputum production. Laboratory data showed sodium 137 potassium 2.8 chloride 103 bicarb is 18.6 BUN 10 and creatinine 0.5 and calcium 8.4. General surgery is on board. Current medications reviewed. Objective - Vital Signs Vital signs: Vital Signs Temp 97.0 F L 11/06/22 19:23 Pulse 71 11/06/22 19:23 Resp 16 11/06/22 19:23 BP 144/54 11/06/22 19:23 Pulse Ox 97 11/06/22 19:23 FiO2 Intake & Output 11/06/22 11/06/22 11/07/22 06:59 18:59 06:59 Other: Voiding Method Bedside Commode # Voids 2 3 # Bowel Movements 0 - Exam - Exam GENERAL: The patient is alert and oriented x3, not in any acute distress. Well developed, well nourished. HEENT: Pupils are round and equally reacting to light. EOMI. No scleral icterus. No conjunctival pallor. Normocephalic, atraumatic. No pharyngeal erythema. No thyromegaly. CARDIOVASCULAR: S1 and S2 present. No murmurs, rubs, or gallops. PULMONARY: Chest is clear to auscultation, no wheezing or crackles. ABDOMEN: Soft, nontender, nondistended, normoactive bowel sounds. No palpable organomegaly. MUSCULOSKELETAL: No joint swelling or deformity. EXTREMITIES: No cyanosis, clubbing, or pedal edema. NEUROLOGICAL: Gross neurological examination did not reveal any focal deficits. SKIN: No rashes. no petechiae. - Labs CBC & Chem 7: 11/07/22 05:46 11/07/22 05:46 Labs: Abnormal Lab Results - Last 24 Hours (Table) 11/06/22 Range/Units 06:16 Potassium 2.8 L (3.5-5.5) mmol/L Carbon Dioxide 18.6 L (20.0-27.5) mmol/L Creatinine 0.5 L (0.6-1.5) mg/dL Glucose 69 L (70-110) mg/dL Calcium 8.4 L (8.7-10.3) mg/dL Assessment and Plan Assessment: -Acute small bowel obstruction with air-fluid levels. No transition point. Nothing by mouth. IV fluids. Surgery consulted. Continue NG tube for decompression. Pain management with morphine. -Essential hypertension. Blood pressure is controlled. Catapres patch 0.2 mg -Hyperlipidemia Zocor -Severe hypokalemia 2.8. Continue to replace. Prophylaxis: Lovenox GI prophylaxis, Protonix
[2022-11-07] MEDS: IOPAMIDOL CONTRAST (ORAL USE) VIAL PO PRN ×2 (10:39→11:34)
--- NOTE | 2022-11-07 11:06 | P.PN ---
Subjective Progress Note Date: 11/07/22 CHIEF COMPLAINT: Abdominal pain HISTORY OF PRESENT ILLNESS: Patient complains that she is just not feeling well. She had 5 watery stools. She has NG tube in place. Per nursing staff patient had 500 mL bilious output yesterday. Patient does report ambulating almost 4 miles in the hallway yesterday. Patient denies any nausea. She has some mild upper abdominal discomfort. Afebrile. WBC is 4.17 hgb 11.2 platelets 221 sodium is 136 potassium is up to 3.6 creatinine 0.5 PHYSICAL EXAM: VITAL SIGNS: Reviewed. GENERAL: Well-developed in no acute distress. HEENT: No sclera icterus. Extraocular movements grossly intact. Moist buccal mucosa. Head is atraumatic, normocephalic. ABDOMEN: Soft. Mildly distended. Mild discomfort with palpation upper abdomen NEUROLOGIC: Alert and oriented. Cranial nerves II through XII grossly intact. ASSESSMENT: 1. Small bowel obstruction with transition point in the right lower quadrant 2. History of abdominal surgery 3. Hypokalemia resolved PLAN: -Computed tomography scan abdomen and pelvis with oral contrast for further evaluation of small bowel obstruction -Continue NG tube for decompression -Keep patient NPO except ice chips -Continue IV fluids -Encourage patient to ambulate -Continue supportive care Physician Operations Research Manager note has been reviewed by physician. Signing provider agrees with the documented findings, assessment, and plan of care. Objective - Vital Signs Vital signs: Vital Signs Temp 98.7 F 11/07/22 07:27 Pulse 75 11/07/22 07:27 Resp 18 11/07/22 07:27 BP 125/58 11/07/22 07:27 Pulse Ox 97 11/07/22 07:27 FiO2 Intake & Output 11/06/22 11/07/22 11/07/22 18:59 06:59 18:59 Other: Voiding Method Bedside Commode # Voids 3 5 # Bowel Movements 0 5 - Labs CBC & Chem 7: 11/07/22 05:46 11/07/22 05:46 Labs: Abnormal Lab Results - Last 24 Hours (Table) 11/07/22 11/07/22 Range/Units 05:46 05:46 WBC 4.17 L (4.50-10.00) X 10*3/uL RBC 3.90 L (4.10-5.20) X 10*6/uL Hgb 11.2 L (12.0-15.0) g/dL Hct 33.7 L (37.2-46.3) % Eosinophils # 0.02 L (0.04-0.35) X 10*3/uL Carbon Dioxide 17.5 L (20.0-27.5) mmol/L BUN 8.9 L (9.0-27.0) mg/dL Creatinine 0.5 L (0.6-1.5) mg/dL Glucose 66 L (70-110) mg/dL Calcium 8.3 L (8.7-10.3) mg/dL
--- NOTE | 2022-11-07 12:51 | CT ---
EXAMINATION TYPE: CT abdomen pelvis wo con CT DLP: 426.2 mGycm, Automated exposure control for dose reduction was used. DATE OF EXAM: 11/07/2022 12:34 PM COMPARISON: CT abdomen pelvis most recent from 11/05/2022 CLINICAL INDICATION:Female, 82 years old with history of abdominal pain; follow up to [facility] TECHNIQUE: Axial CT of the abdomen and pelvis. Sagittal and coronal reformats were created on a [employer] workstation. Contrast used: None Oral contrast used: with Oral Contrast FINDINGS: LOWER CHEST: Unremarkable ABDOMEN LIVER: Unremarkable GALLBLADDER AND BILE DUCTS: Unremarkable. PANCREAS: Unremarkable. SPLEEN: Unremarkable. ADRENAL GLANDS: Unremarkable. KIDNEYS AND URETERS: No evidence of hydronephrosis. The ureters are unremarkable. Nonobstructive rig ht renal calculus no left renal calculi. PELVIS BLADDER: Unremarkable REPRODUCTIVE: Uterus is atrophic versus surgically absent. ABDOMEN & PELVIS STOMACH AND BOWEL: There remains prominent bowel loops of small bowel throughout the abdomen some of which are distended up to 3.2 cm in the right abdomen and 3.5 cm in the left abdomen. Nasogastric tub e is in appropriate position. There is no oral contrast within the large bowel. Oral contrast is mini ginger seen within the ileum which is also not distended. Scattered diverticula are noted throughout t he colon. PERITONEUM: No evidence of pneumoperitoneum. Increased free fluid within the pelvis on today's exam. VASCULATURE: Moderate atherosclerotic calcifications are present throughout the abdominal aorta and i ts branches. No evidence of aortic aneurysm. MUSCULOSKELETAL: No acute osseous abnormalities. Severe disc degeneration changes are present through out the thoracolumbar spine. Degenerative changes of the hip joints bilaterally. LYMPH NODES: No gross evidence for lymphadenopathy. SOFT TISSUE/ABDOMINAL WALL: Focal soft tissue emphysema right anterior body wall, likely from injecti on. No acute abnormalities. IMPRESSION: 1. Persistent dilated small bowel loops within the abdomen which have decreased slightly from prior o n 11/05/2022. There remains a minimal oral contrast within the distal ileum which is nondistended. No oral contrast seen within the colon at this time. Findings suggest partial bowel obstruction. Conside r follow-up plain film abdominal radiographs to ensure passage to the colon. 2. Increase in ascites within the pelvis, likely reactive to #1. 3. Colonic diverticulosis and other incidental findings as detailed above.
[2022-11-07] MEDS: SODIUM CHLORIDE 0.9% 1,000 ML IV SCH (15:00)
[2022-11-07] MEDS: DEXTROSE 5%-0.45% NACL 1,000 ML IV SCH (17:01)
--- NOTE | 2022-11-07 17:19 | P.PN ---
Progress Note - Text Progress Note Date: 11/07/22 Chief Complaint: Abdominal pain This is a pleasant 82-year-old patient who follows with Dr. Nathan. Chronic stable medical conditions include hypertension, hyperlipidemia. 2 days patient had not been feeling well. She thought it was a viral bug. Subsequently around 2:00 in the morning she's developed increasing abdominal pain. With nausea vomiting. No fever no chills. Normally has a bowel movement every day. Small bowel in the morning.. Presented to [facility]. Computed tomography scan of the abdomen showed multiple dilated small bowel loops. Air-fluid levels. No transition point was seen. Patient was transferred down here for further intervention. General surgery was consulted. 11/04/2021 Patient presents with abdominal pain from [facility]. Patient today sitting in bed comfortable, she denies significant abdominal pain however she remains nothing by mouth. Also she denies melena in her bowel, since admission. She vomited once with a clear liquid last night but as above her abdominal pain is improving. Blood pressure is still high therefore we increased her clonidine patch 0.1-0.2 mg. Surgery team on the case 11/05/2022 Patient still complains from upper abdominal pain this morning, she's been having burning and some vomiting with bile. About twice earlier this morning. No bowel movement, she was started on lactulose Genetics on IV fluids, pain was controlled. Blood pressure is better controlled after increasing the dose of clonidine patch. 11/06/2022 Patient is currently able to ambulate in the hallway. No complaints of abdominal pain. No nausea or vomiting. Patient has not passed flatus yet. Bowel sounds are present. Patient is currently nothing by mouth and is being continued on IV hydration and pain medications as needed. Potassium level is 2.8 today which is being replaced. Patient has been afebrile. No cough or sputum production. Laboratory data showed sodium 137 potassium 2.8 chloride 103 bicarb is 18.6 BUN 10 and creatinine 0.5 and calcium 8.4. General surgery is on board. 11/07/2022: I resumed care of the patient today. Sitting up in a chair. She NG tube to suction. Had significant amount of diarrhea last night. Pending a computed tomography scan this afternoon. Family at the bedside. Abdominal pain better. Active Medications Benzocaine (Benzocaine [place] 1 Can) 1 spray MUCOUS MEM QID PRN; Protocol PRN Reason: Mouth Irritation Clonidine HCl (Clonidine 0.2 Mg/24hr Patch) 1 patch TRANSDERM Q7D [facility] Last Admin: 11/04/22 16:29 Dose: 1 patch Enoxaparin Sodium (Enoxaparin 40 Mg/0.4 Ml Syringe) 40 mg SQ DAILY [facility] Last Admin: 11/07/22 08:44 Dose: 40 mg Dextrose/Sodium Chloride (Dextrose 5%-1/2ns Iv Soln) 1,000 mls @ 100 mls/hr IV .Q10H [facility] Last Admin: 11/07/22 17:01 Dose: 100 mls/hr Miscellaneous Information (Potassium Replacement Protocol 1 Each Misc) 1 each MISCELLANE DAILY PRN; Protocol PRN Reason: Per Protocol Miscellaneous Information (Potassium Replacement Protocol 1 Each Misc) 1 each MISCELLANE DAILY PRN; Protocol PRN Reason: Per Protocol Morphine Sulfate (Morphine Sulfate 4 Mg/Ml Syringe) 4 mg IV Q4HR PRN PRN Reason: Severe Pain (Scale 7 to 10) Last Admin: 11/03/22 20:09 Dose: 4 mg Naloxone HCl (Naloxone 0.4 Mg/Ml 1 Ml Vial) 0.2 mg IV Q2M PRN PRN Reason: Opioid Reversal Ondansetron HCl (Ondansetron 4 Mg/2 Ml Vial) 4 mg IVP Q8HR PRN PRN Reason: Nausea And Vomiting Last Admin: 11/05/22 12:37 Dose: 4 mg Pantoprazole Sodium (Pantoprazole 40 Mg/10 Ml Vial) 40 mg IVP DAILY [facility] Last Admin: 11/07/22 08:45 Dose: 40 mg Past medical history to include: Hyperlipidemia, hypertension, Social history: . Lives with her . No smoking or alcohol. Physical examination: VITAL SIGNS: 97.5, 74, 19, 141 /75, 100% room air GENERAL: Up in a chair, not in distress EYES: Pupils equal. Conjunctiva normal. HEENT: External appearance of nose and ears normal, NG tube. Oral cavity dry NECK: JVD not raised; masses not palpable. HEART: First and second heart sounds are normal; no edema. LUNGS: Respiratory rate normal; clear to auscultation. ABDOMEN: Soft, some minimal tenderness, no guarding rigidity., liver spleen not palpable, no masses palpable. Bowel sounds present PSYCH: Alert and oriented x3; mood and affect normal. MUSCULOSKELETAL:No Clubbing/cyanosis;muscles-grossly intact. 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 Partial small bowel obstruction. Colonic diverticulosis. Blood work from [facility] shows: Urine drug screen negative Sodium 134 potassium 4.4 creatinine 0.5. Glucose 66 White count 5 hemoglobin 13.9 platelets 216 UA: Ketones 3+ Computed tomography scan multiple dilated small bowel loops with air-fluid levels. No transition point. Assessment and plan: -Acute small bowel obstruction with air-fluid levels. No transition point.: Not improving Nothing by mouth. IV fluids. Surgery following. NG tube to suction. Repeat computed tomography scan on November 07: Minimal improvement -Essential hypertension Catapres patch 0.1 mg -Hyperlipidemia Zocor -Hypoglycemia from poor oral intake: New diagnosis Change IV fluids to D5 0.45. 100 mL an hour. Discussed with patient and family at the bedside. Change to IV fluids D5.45. NG tube suction to continue
[2022-11-08] MEDS: DEXTROSE 5%-0.45% NACL 1,000 ML IV SCH ×3 (02:20→22:46)
[2022-11-08 06:19] LABS: African American GFR (CKD) >90 (>60 ml/min/1.73 sqM); Anion Gap 11 mmol/L; Blood Urea Nitrogen 5 mg/dL (7-17); Calcium 8.2 mg/dL (8.4-10.2); Carbon Dioxide 21 mmol/L (22-30); Chloride 101 mmol/L (98-107); Glucose 122 mg/dL (74-99); Non-African American GFR(CKD) >90 (>60 ml/min/1.73 sqM); Potassium 3.1 mmol/L (3.5-5.1); Sodium 133 mmol/L (137-145)
[2022-11-08 06:34] LABS: HCT 35.9 % (34.0-46.0); HGB 12.6 gm/dL (11.4-16.0); MCH 29.8 pg (25.0-35.0); Mean Platelet Volume 8.2; Platelet Count 271 k/uL (150-450); RBC 4.22 m/uL (3.80-5.40); RDW 13.3 % (11.5-15.5); WBC 5.1 k/uL (3.8-10.6)
[2022-11-08] MEDS ORDERED: POTASSIUM CHLORIDE ER 20 MEQ TAB.ER PO STA (08:08)
[2022-11-08] MEDS: PANTOPRAZOLE 40 MG/10 ML VIAL IVP SCH (08:27)
[2022-11-08] MEDS: ENOXAPARIN 40 MG/0.4 ML SYRINGE SQ SCH (08:34)
--- NOTE | 2022-11-08 10:11 | P.EN ---
medically stable to proceed for surgery
--- NOTE | 2022-11-08 10:24 | P.PN ---
Subjective Progress Note Date: 11/08/22 CHIEF COMPLAINT: Abdominal pain HISTORY OF PRESENT ILLNESS: Patient continues to complain that she is just not feeling well. She did report passing a small amount of flatus. She had a smear of a BM. Denies any nausea. She reports not having much pain in the abdomen. Computed tomography scan abdomen and pelvis persistent dilated small bowel loops in the abdomen which have decreased slightly from prior on 11/05/2022. There remains a minimal oral contrast within the distal ileum which is nondistended. No oral contrast seen within the colon at this time. Findings suggest partial bowel obstruction. Increased ascites within the pelvis likely reacted #1. Colonic diverticulosis and other incidental findings. Afebrile. WBC is 5.1 hgb 12.6 platelets 271 sodium is 133 potassium 3.1 creatinine 0.39 PHYSICAL EXAM: VITAL SIGNS: Reviewed. GENERAL: Well-developed in no acute distress. HEENT: No sclera icterus. Extraocular movements grossly intact. Moist buccal mucosa. Head is atraumatic, normocephalic. ABDOMEN: Soft. Mildly distended. Minimal discomfort with palpation upper abdomen NEUROLOGIC: Alert and oriented. Cranial nerves II through XII grossly intact. ASSESSMENT: 1. Small bowel obstruction with transition point in the right lower quadrant 2. History of abdominal surgery 3. Hypokalemia PLAN: -Patient scheduled for exploratory laparotomy today with Dr. Patel -Continue NG tube -Keep patient nothing by mouth -Replace potassium -Discussed case with patient and family. Dr. Patel is recommending surgery for SBO. All questions were answered to the best my ability. Patient is agreeable to proceed with surgery. Physician Machine Installer note has been reviewed by physician. Signing provider agrees with the documented findings, assessment, and plan of care. Objective - Vital Signs Vital signs: Vital Signs Temp 98.0 F 11/08/22 07:15 Pulse 75 11/08/22 07:15 Resp 18 11/08/22 07:15 BP 166/61 11/08/22 07:15 Pulse Ox 97 11/08/22 07:15 FiO2 Intake & Output 11/07/22 11/08/22 11/08/22 18:59 06:59 18:59 Other: Voiding Method Bedside Commode # Voids 4 4 # Bowel Movements 1 - Labs CBC & Chem 7: 11/08/22 05:37 11/08/22 05:33 Labs: Abnormal Lab Results - Last 24 Hours (Table) 11/08/22 Range/Units 05:33 Sodium 133 L (137-145) mmol/L Potassium 3.1 L (3.5-5.1) mmol/L Carbon Dioxide 21 L (22-30) mmol/L BUN 5 L (7-17) mg/dL Creatinine 0.39 L (0.52-1.04) mg/dL Glucose 122 H (74-99) mg/dL Calcium 8.2 L (8.4-10.2) mg/dL
[2022-11-08 13:28] LABS: Prothrombin Time 10.8 sec (9.0-12.0)
--- NOTE | 2022-11-08 14:02 | P.PN ---
Progress Note - Text Progress Note Date: 11/08/22 Chief Complaint: Abdominal pain This is a pleasant 82-year-old patient who follows with Dr. Nathan. Chronic stable medical conditions include hypertension, hyperlipidemia. 2 days patient had not been feeling well. She thought it was a viral bug. Subsequently around 2:00 in the morning she's developed increasing abdominal pain. With nausea vomiting. No fever no chills. Normally has a bowel movement every day. Small bowel in the morning.. Presented to [facility]. Computed tomography scan of the abdomen showed multiple dilated small bowel loops. Air-fluid levels. No transition point was seen. Patient was transferred down here for further intervention. General surgery was consulted. 11/04/2021 Patient presents with abdominal pain from [facility]. Patient today sitting in bed comfortable, she denies significant abdominal pain however she remains nothing by mouth. Also she denies melena in her bowel, since admission. She vomited once with a clear liquid last night but as above her abdominal pain is improving. Blood pressure is still high therefore we increased her clonidine patch 0.1-0.2 mg. Surgery team on the case 11/05/2022 Patient still complains from upper abdominal pain this morning, she's been having burning and some vomiting with bile. About twice earlier this morning. No bowel movement, she was started on lactulose Genetics on IV fluids, pain was controlled. Blood pressure is better controlled after increasing the dose of clonidine patch. 11/06/2022 Patient is currently able to ambulate in the hallway. No complaints of abdominal pain. No nausea or vomiting. Patient has not passed flatus yet. Bowel sounds are present. Patient is currently nothing by mouth and is being continued on IV hydration and pain medications as needed. Potassium level is 2.8 today which is being replaced. Patient has been afebrile. No cough or sputum production. Laboratory data showed sodium 137 potassium 2.8 chloride 103 bicarb is 18.6 BUN 10 and creatinine 0.5 and calcium 8.4. General surgery is on board. 11/07/2022: I resumed care of the patient today. Sitting up in a chair. She NG tube to suction. Had significant amount of diarrhea last night. Pending a computed tomography scan this afternoon. Family at the bedside. Abdominal pain better. 11/08/2022: Up in a chair. NG tube. Family the bedside. Flatus present. No abdominal pain. No nausea vomiting. Patient scheduled for surgery this afternoon. Had a lengthy discussion with the patient family the bedside. We will arrange for TPN starting tomorrow.. Communicated with the nurse and Gen. surgery. On D5W Active Medications Benzocaine (Benzocaine [place] 1 Can) 1 spray MUCOUS MEM QID PRN; Protocol PRN Reason: Mouth Irritation Clonidine HCl (Clonidine 0.2 Mg/24hr Patch) 1 patch TRANSDERM Q7D [facility] Last Admin: 11/04/22 16:29 Dose: 1 patch Enoxaparin Sodium (Enoxaparin 40 Mg/0.4 Ml Syringe) 40 mg SQ DAILY [facility] Last Admin: 11/08/22 08:34 Dose: Not Given Dextrose/Sodium Chloride (Dextrose 5%-1/2ns Iv Soln) 1,000 mls @ 100 mls/hr IV .Q10H [facility] Last Admin: 11/08/22 13:38 Dose: 100 mls/hr Miscellaneous Information (Potassium Replacement Protocol 1 Each Misc) 1 each MISCELLANE DAILY PRN; Protocol PRN Reason: Per Protocol Miscellaneous Information (Potassium Replacement Protocol 1 Each Misc) 1 each MISCELLANE DAILY PRN; Protocol PRN Reason: Per Protocol Morphine Sulfate (Morphine Sulfate 4 Mg/Ml Syringe) 4 mg IV Q4HR PRN PRN Reason: Severe Pain (Scale 7 to 10) Last Admin: 11/03/22 20:09 Dose: 4 mg Naloxone HCl (Naloxone 0.4 Mg/Ml 1 Ml Vial) 0.2 mg IV Q2M PRN PRN Reason: Opioid Reversal Ondansetron HCl (Ondansetron 4 Mg/2 Ml Vial) 4 mg IVP Q8HR PRN PRN Reason: Nausea And Vomiting Last Admin: 11/05/22 12:37 Dose: 4 mg Pantoprazole Sodium (Pantoprazole 40 Mg/10 Ml Vial) 40 mg IVP DAILY [facility] Last Admin: 11/08/22 08:27 Dose: 40 mg Past medical history to include: Hyperlipidemia, hypertension, Social history: . Lives with her . No smoking or alcohol. Physical examination: VITAL SIGNS: 98.2, 79, 18, 166/71, 97% room air GENERAL: Up in a chair, not in distress EYES: Pupils equal. Conjunctiva normal. HEENT: External appearance of nose and ears normal, NG tube. Oral cavity dry NECK: JVD not raised; masses not palpable. HEART: First and second heart sounds are normal; no edema. LUNGS: Respiratory rate normal; clear to auscultation. ABDOMEN: Soft, no tenderness, no guarding rigidity., liver spleen not palpable, no masses palpable. Bowel sounds present PSYCH: Alert and oriented x3; mood and affect normal. MUSCULOSKELETAL:No Clubbing/cyanosis;muscles-grossly intact. OA INVESTIGATIONS, reviewed in the clinical context: November 08: White count 5.1 hemoglobin 12.6 potassium 3.1. 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 Partial small bowel obstruction. Colonic diverticulosis. Blood work from [facility] shows: Urine drug screen negative Sodium 134 potassium 4.4 creatinine 0.5. Glucose 66 White count 5 hemoglobin 13.9 platelets 216 UA: Ketones 3+ Computed tomography scan multiple dilated small bowel loops with air-fluid levels. No transition point. Assessment and plan: -Acute small bowel obstruction with air-fluid levels. No transition point.: Not improving Nothing by mouth. IV fluids. Surgery following. NG tube to suction. Repeat computed tomography scan on November 07: Minimal improvement Patient scheduled for surgery today -Essential hypertension Catapres patch 0.1 mg -Hyperlipidemia Zocor -Hypoglycemia from poor oral intake: Better D5 0.45. 100 mL an hour. Discussed at length with the patient and family at the bedside. Arrange for TPN for tomorrow. Additional IV access of needed. Scheduled for surgery today. Remains nothing by mouth.
[2022-11-08] MEDS ORDERED: LACTATED RINGERS 1,000 ML IV ONE ×4 (14:22→17:30)
[2022-11-08] MEDS ORDERED: DEXAMETHASONE SOD PHOSPHATE 4 MG/ML 1 ML VIAL IVP ONE (14:35)
[2022-11-08] MEDS ORDERED: ONDANSETRON 4 MG/2 ML VIAL IVP ONE (14:35)
[2022-11-08] MEDS ORDERED: MIDAZOLAM 2 MG/2 ML VIAL IVP ONE (14:41)
[2022-11-08] MEDS ORDERED: fentaNYL (PF) 50 MCG/1 ML VIAL IVP ONE (14:41)
--- NOTE | 2022-11-08 15:28 | P.ANPRN ---
Procedure Note - Anesthesia - Nerve Block Performed Bilateral Rectus Abdominis Single Time Out Performed: Yes (1440) Date of Procedure: 11/08/22 Procedure Start Time: 14:41 Procedure Stop Time: 14:47 Location of Patient: PreOp Indication: Acute Post-Operative Pain, Requested by Surgeon Specifically requested for management of pain by DrNette: Vineet Patel Sedation Type: Sedate with meaningful contact maintained Preparation: Sterile Prep Position: Supine Catheter: None Needle Types: Pajunk Needle Gauge: 21 Ultrasound used to visualize needle placement: Yes Ultrasound used to observe medication spread: Yes Injectate: 0.5% Ropivacaine (see comment for volume) (15cc +5cc nacl pf each side) Blood Aspirated: No Pain Paresthesia on Injection Noted: No Resistance on Injection: Normal Image Stored and Saved: Yes Events: Uneventful and Well Tolerated
[2022-11-08] MEDS ORDERED: PHENYLEPHRINE-0.9% NACL SYG 1,000 MCG/10 ML SYRINGE ONE (15:36)
[2022-11-08] MEDS ORDERED: GLYCOPYRROLATE 0.2 MG/ML 2 ML VIAL ONE (15:36)
[2022-11-08] MEDS ORDERED: PROPOFOL 10 MG/ML 20 ML VIAL IV ONE (15:36)
[2022-11-08] MEDS ORDERED: NEOSTIGMINE 1 MG/ML 10 ML VIAL ONE (15:36)
[2022-11-08] MEDS ORDERED: ROPIVACAINE 5 MG/ML 30 ML VIAL ONE (15:36)
[2022-11-08] MEDS ORDERED: fentaNYL (PF) 50 MCG/ML 2 ML AMP ONE (15:36)
[2022-11-08] MEDS ORDERED: SODIUM CHLORIDE 0.9% (PF) 10 ML VIAL ONE (15:36)
[2022-11-08] MEDS ORDERED: SUCCINYLCHOLINE CHLORIDE 200 MG/10 ML VIAL IV ONE (15:36)
[2022-11-08] MEDS ORDERED: SODIUM CHLORIDE 0.9% 100 ML with ceFAZolin 2,000 MG IV ONE ×2 (15:39)
[2022-11-08] MEDS ORDERED: NALOXONE 0.4 MG/ML 1 ML VIAL IV PRN (16:37)
[2022-11-08] MEDS ORDERED: HYDROmorphone 1 MG/ML 1 ML SYRINGE IVP PRN (16:37)
[2022-11-08] MEDS ORDERED: ONDANSETRON 4 MG/2 ML VIAL IVP PRN (16:37)
[2022-11-08] MEDS ORDERED: HYDROcodone/APAP 5-325MG 1 EACH TAB PO PRN (16:37)
[2022-11-08] MEDS ORDERED: HYDROmorphone 0.5 MG/0.5 ML SYRINGE IVP PRN (16:37)
[2022-11-08] MEDS ORDERED: ACETAMINOPHEN TAB 325 MG TAB PO PRN (16:37)
[2022-11-08] MEDS ORDERED: METOCLOPRAMIDE 5 MG/ML 2 ML VIAL IVP PRN (16:37)
--- NOTE | 2022-11-08 16:37 | P.OP ---
Date of Procedure: 11/08/22 Preoperative Diagnosis: Partial small bowel obstruction Postoperative Diagnosis: Adhesions Hydropic gallbladder Procedure(s) Performed: Lysis of adhesions Open cholecystectomy Anesthesia: JANETT Surgeon: Vineet Patel Estimated Blood Loss (ml): 5 Pathology: other (Gallbladder) Condition: stable Disposition: PACU Description of Procedure: The patient's placed on the operative table in the supine position. She received general NG tube position. Her abdomen was prepped and draped usual fashion. The abdomen was entered through a low midline incision. Upon entering the abdomen there was some ascites seen. A [place] tract with wound. The ascites was aspirated. The small bowel appeared to be mildly dilated. The small bowel was then run from the ligament of Treitz to the ileocecal valve. There was adhesive band in the mid terminal ileum which appeared to be, creating a partial obstruction. This was lysed with sharp dissection. The small bowel was then run again and there was no evidence of any other obstruction. The liver was inspected. The gallbladder appeared to be inflamed and hydropic. The gallbladder had a definite abnormal appearance. His decided to perform an open cholestatic. The gallbladder was then taken down in the dome down technique. Left cautery used to dissect the gallbladder off the liver bed. And then using a 0 silk tie the cystic duct and cystic artery were ligated. 3 ties were used. And then the cystic duct was transected. The gallbladder sent to pathology. Abdomen was then irrigated there is no bleeding seen. The fascia was then closed in looped #1 PDS suture. Skin was closed carla. Patient top she will well and was sent to recovery room in stable condition.
[2022-11-08] MEDS: KETOROLAC 15 MG/ML 1 ML VIAL IVP SCH (17:44)
[2022-11-09] MEDS: KETOROLAC 15 MG/ML 1 ML VIAL IVP SCH ×4 (01:17→17:50)
[2022-11-09] MEDS: DEXTROSE 5%-0.45% NACL 1,000 ML IV SCH (08:45)
[2022-11-09] MEDS: PANTOPRAZOLE 40 MG/10 ML VIAL IVP SCH (08:45)
[2022-11-09] MEDS: ENOXAPARIN 40 MG/0.4 ML SYRINGE SQ SCH (08:46)
[2022-11-09 09:33] LABS: Basophils # (A) 0.01 X 10*3/uL (0.00-0.10); Basophils % (A) 0.2 %; Eosinophils # (A) 0 X 10*3/uL (0.04-0.35); Eosinophils % (A) 0 %; HCT 33.4 % (37.2-46.3); HGB 11.3 g/dL (12.0-15.0); Immature Grans, Automated 0.3 %; Lymphocytes # (A) 0.58 X 10*3/uL (0.90-5.00); Lymphocytes % (A) 9.5 %; MCHC 33.8 g/dL (32.0-37.0); MCV 85.6 fL (80.0-97.0); Mean Platelet Volume 10.5 fL (9.5-12.2); Monocytes # (A) 0.48 X 10*3/uL (0.20-1.00); Monocytes % (A) 7.9 %; NRBC Per 100 WBC 0 /100 WBCS (0.0-0.0); Neutrophils # (A) 4.99 X 10*3/uL (1.80-7.70); Neutrophils % (A) 82.1 %; Platelet Count 273 X 10*3/uL (140-440); RDW 13.2 % (11.5-14.5); WBC 6.08 X 10*3/uL (4.50-10.00)
[2022-11-09 10:09] LABS: African American GFR (CKD) 105.9 (60.0-200.0); Albumin 3.4 g/dL (3.8-4.9); Albumin/Globulin Ratio 1.79 (1.60-3.17); Blood Urea Nitrogen 4.5 mg/dL (9.0-27.0); Calcium 8.4 mg/dL (8.7-10.3); Globulin 1.9 g/dL (1.6-3.3); Non-African American GFR(CKD) 91.4 (60.0-200.0); Potassium 3.4 mmol/L (3.5-5.5); Total Bilirubin 0.3 mg/dL (0.30-1.20); Total Protein 5.3 g/dL (6.2-8.2)
[2022-11-09] MEDS ORDERED: LIDOCAINE 1% INJ 10MG/ML (5 ML VIAL-PF) SQ ONE (10:44)
--- NOTE | 2022-11-09 10:59 | IR ---
PICC LINE PLACEMENT: HISTORY: TPN therapy PROCEDURE: Ultrasound and fluoroscopic guidance of PICC line placement. COMPLICATIONS: None ANESTHESIA: 1. 1% Lidocaine locally. FINDINGS/TECHNIQUE: The procedure was explained to the patient. The risks, complications, benefits and alternatives were discussed and any questions were answered. Informed consent was obtained. The patient was placed supine on the fluoroscopic table and prepped and draped in the usual sterile fash ion. Utilizing a 21 gauge needle and sonographic and fluoroscopic guidance, access in the left basi lic vein was achieved and there is placement of a 0.018 guidewire. The vein is patent. A 5-Fr loyola th was placed over the guidewire. The guidewire and dilator were removed and a 5-F. Double lumen PIC C line was placed through the sheath with the tip at the level of the SVC. The sheath was removed, t he catheter was flushed and sutured into position. The patient was stable throughout the procedure a nd remained stable upon discharge from the Department of Radiology. The vein puncture was patent under ultrasound. A [place] scale image was obtained to document patency of the vein punctured. All elements of the maximal barrier technique were utilized. FLUOROSCOPY TIME: [id number] IMPRESSION: Successful PICC double lumen line placement under ultrasound and fluoroscopic guidance.
[2022-11-09 11:24] VITALS: BMI 22.8
[2022-11-09] MEDS ORDERED: POTASSIUM CHLORIDE ER 20 MEQ TAB.ER PO STA (14:49)
--- NOTE | 2022-11-09 14:51 | P.PN ---
Progress Note - Text Progress Note Date: 11/09/22 Chief Complaint: Abdominal pain This is a pleasant 82-year-old patient who follows with Dr. Nathan. Chronic stable medical conditions include hypertension, hyperlipidemia. 2 days patient had not been feeling well. She thought it was a viral bug. Subsequently around 2:00 in the morning she's developed increasing abdominal pain. With nausea vomiting. No fever no chills. Normally has a bowel movement every day. Small bowel in the morning.. Presented to [facility]. Computed tomography scan of the abdomen showed multiple dilated small bowel loops. Air-fluid levels. No transition point was seen. Patient was transferred down here for further intervention. General surgery was consulted. 11/04/2021 Patient presents with abdominal pain from [facility]. Patient today sitting in bed comfortable, she denies significant abdominal pain however she remains nothing by mouth. Also she denies melena in her bowel, since admission. She vomited once with a clear liquid last night but as above her abdominal pain is improving. Blood pressure is still high therefore we increased her clonidine patch 0.1-0.2 mg. Surgery team on the case 11/05/2022 Patient still complains from upper abdominal pain this morning, she's been having burning and some vomiting with bile. About twice earlier this morning. No bowel movement, she was started on lactulose Genetics on IV fluids, pain was controlled. Blood pressure is better controlled after increasing the dose of clonidine patch. 11/06/2022 Patient is currently able to ambulate in the hallway. No complaints of abdominal pain. No nausea or vomiting. Patient has not passed flatus yet. Bowel sounds are present. Patient is currently nothing by mouth and is being continued on IV hydration and pain medications as needed. Potassium level is 2.8 today which is being replaced. Patient has been afebrile. No cough or sputum production. Laboratory data showed sodium 137 potassium 2.8 chloride 103 bicarb is 18.6 BUN 10 and creatinine 0.5 and calcium 8.4. General surgery is on board. 11/07/2022: I resumed care of the patient today. Sitting up in a chair. She NG tube to suction. Had significant amount of diarrhea last night. Pending a computed tomography scan this afternoon. Family at the bedside. Abdominal pain better. 11/08/2022: Up in a chair. NG tube. Family the bedside. Flatus present. No abdominal pain. No nausea vomiting. Patient scheduled for surgery this afternoon. Had a lengthy discussion with the patient family the bedside. We will arrange for TPN starting tomorrow.. Communicated with the nurse and Gen. surgery. On D5W 11/09/2022: Patient underwent surgery yesterday. Lysis of adhesion. Open cholecystectomy. Started on clear liquids. at bedside. No nausea vomiting. Midline dressing. Binder. Active Medications Acetaminophen (Acetaminophen Tab 325 Mg Tab) 650 mg PO Q6HR PRN PRN Reason: Mild Pain or Fever >= 100.5 Last Admin: 11/09/22 08:54 Dose: 650 mg Hydrocodone Bitart/Acetaminophen (Hydrocodone/Apap 5-325mg 1 Each Tab) 2 each PO Q6HR PRN PRN Reason: Severe Pain (Scale 7 to 10) Last Admin: 11/09/22 12:37 Dose: 2 each Benzocaine (Benzocaine [place] 1 Can) 1 spray MUCOUS MEM QID PRN; Protocol PRN Reason: Mouth Irritation Clonidine HCl (Clonidine 0.2 Mg/24hr Patch) 1 patch TRANSDERM Q7D [facility] Last Admin: 11/04/22 16:29 Dose: 1 patch Enoxaparin Sodium (Enoxaparin 40 Mg/0.4 Ml Syringe) 40 mg SQ DAILY [facility] Last Admin: 11/09/22 08:46 Dose: Not Given Hydromorphone HCl (Hydromorphone 0.5 Mg/0.5 Ml Syringe) 0.5 mg IVP Q3HR PRN PRN Reason: Moderate Pain (Scale 4 to 6) Hydromorphone HCl (Hydromorphone 1 Mg/Ml 1 Ml Syringe) 1 mg IVP Q4HR PRN PRN Reason: Severe Pain (Scale 7 to 10) Dextrose/Sodium Chloride (Dextrose 5%-1/2ns Iv Soln) 1,000 mls @ 100 mls/hr IV .Q10H [facility] Last Admin: 11/09/22 08:45 Dose: 100 mls/hr Ketorolac Tromethamine (Ketorolac 15 Mg/Ml 1 Ml Vial) 15 mg IVP Q6HR [facility] Stop: 11/10/22 12:01 Last Admin: 11/09/22 12:42 Dose: 15 mg Metoclopramide HCl (Metoclopramide 5 Mg/Ml 2 Ml Vial) 10 mg IVP Q6H PRN PRN Reason: Nausea And Vomiting Miscellaneous Information (Potassium Replacement Protocol 1 Each Misc) 1 each MISCELLANE DAILY PRN; Protocol PRN Reason: Per Protocol Miscellaneous Information (Potassium Replacement Protocol 1 Each Misc) 1 each MISCELLANE DAILY PRN; Protocol PRN Reason: Per Protocol Morphine Sulfate (Morphine Sulfate 4 Mg/Ml Syringe) 4 mg IV Q4HR PRN PRN Reason: Severe Pain (Scale 7 to 10) Last Admin: 11/03/22 20:09 Dose: 4 mg Naloxone HCl (Naloxone 0.4 Mg/Ml 1 Ml Vial) 0.2 mg IV Q2M PRN PRN Reason: Opioid Reversal Ondansetron HCl (Ondansetron 4 Mg/2 Ml Vial) 4 mg IVP Q6HR PRN PRN Reason: Nausea And Vomiting Pantoprazole Sodium (Pantoprazole 40 Mg/10 Ml Vial) 40 mg IVP DAILY [facility] Last Admin: 11/09/22 08:45 Dose: 40 mg Past medical history to include: Hyperlipidemia, hypertension, Social history: . Lives with her . No smoking or alcohol. Physical examination: VITAL SIGNS: 98.6, 74, 18, 1:30/74, 96% room air GENERAL: Reclining, comfortable EYES: Pupils equal. Conjunctiva normal. HEENT: External appearance of nose and ears normal, NG tube. Oral cavity dry NECK: JVD not raised; masses not palpable. HEART: First and second heart sounds are normal; no edema. LUNGS: Respiratory rate normal; clear to auscultation. ABDOMEN: Soft, mild tenderness, no guarding rigidity., liver spleen not palpable, no masses palpable. Midline dressing. Binder. PSYCH: Alert and oriented x3; mood and affect normal. MUSCULOSKELETAL:No Clubbing/cyanosis;muscles-grossly intact. OA INVESTIGATIONS, reviewed in the clinical context: November 09: White count 6.0 hemoglobin 11.3 potassium 3.4 creatinine 0.5 November 08: White count 5.1 hemoglobin 12.6 potassium 3.1. 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 Partial small bowel obstruction. Colonic diverticulosis. Blood work from [facility] shows: Urine drug screen negative Sodium 134 potassium 4.4 creatinine 0.5. Glucose 66 White count 5 hemoglobin 13.9 platelets 216 UA: Ketones 3+ Computed tomography scan multiple dilated small bowel loops with air-fluid levels. No transition point. Assessment and plan: -Acute small bowel obstruction with air-fluid levels. No transition point.: Not improving November 08: Lysis of adhesions and open cholecystectomy by Dr. Patel. Clear Liquids -Hypokalemia Replace -Essential hypertension Catapres patch 0.1 mg -Hyperlipidemia Zocor -Hypoglycemia from poor oral intake: Better D5 0.45. Diet to be advanced per surgery. Increase activity. Other medications to continue.
--- NOTE | 2022-11-09 14:56 | P.PN ---
Subjective Progress Note Date: 11/09/22 CHIEF COMPLAINT: SBO HISTORY OF PRESENT ILLNESS: Patient is postop day #1 status post exploratory laparotomy with lysis of adhesions and open cholecystectomy. Patient reports her pain is controlled. She denies any nausea or vomiting. No bowel activity. Afebrile. WBC 6.08 HGB11.3 plt 273 Na 135 K 3.4 cr 0.5 AST 68 ALT 59 PHYSICAL EXAM: VITAL SIGNS: Reviewed. GENERAL: Well-developed in no acute distress. HEENT: No sclera icterus. Extraocular movements grossly intact. Moist buccal mucosa. Head is atraumatic, normocephalic. ABDOMEN: Soft. Prevana wound vac in place NEUROLOGIC: Alert and oriented. Cranial nerves II through XII grossly intact. ASSESSMENT: 1. Small bowel obstruction secondary to adhesions. Patient is status post lysis of adhesions 2. Hydropic gallbladder status post open cholecystectomy 3. History of abdominal surgery 4. Hypokalemia 5. Elevated LFTs PLAN: -PICC line with TPN for nutrition support to be started today -Continue clear liquid diet -Continue pain management -Continue incentive spirometer -Discontinue Blake catheter -Potassium being replaced -Repeat CMP in a.m. -Encouraged patient to increase activity level -GI prophylaxis Protonix and DVT prophylaxis Lovenox Physician Executive Creative Director note has been reviewed by physician. Signing provider agrees with the documented findings, assessment, and plan of care. Objective - Vital Signs Vital signs: Vital Signs Temp 98.6 F 11/09/22 07:19 Pulse 74 11/09/22 07:19 Resp 18 11/09/22 07:19 BP 130/74 11/09/22 07:19 Pulse Ox 96 11/09/22 07:19 FiO2 Intake & Output 11/08/22 11/09/22 11/09/22 18:59 06:59 18:59 Intake Total 1100 Output Total 1150 600 Balance -50 -600 Weight 57.606 kg 57.606 kg Intake: IV 1100 Output: Urine 1100 600 Uretheral (Blake) 400 Estimated Blood Loss 50 Other: Voiding Method Bedside Commode # Voids 2 1 - Labs CBC & Chem 7: 11/09/22 06:04 11/09/22 06:04 Labs: Abnormal Lab Results - Last 24 Hours (Table) 11/09/22 11/09/22 Range/Units 06:04 06:04 RBC 3.90 L (4.10-5.20) X 10*6/uL Hgb 11.3 L (12.0-15.0) g/dL Hct 33.4 L (37.2-46.3) % Lymphocytes # 0.58 L (0.90-5.00) X 10*3/uL Eosinophils # 0 L (0.04-0.35) X 10*3/uL Potassium 3.4 L (3.5-5.5) mmol/L BUN 4.5 L (9.0-27.0) mg/dL Creatinine 0.5 L (0.6-1.5) mg/dL BUN/Creatinine Ratio 9.00 L (12.00-20.00) Ratio Glucose 163 H (70-110) mg/dL Calcium 8.4 L (8.7-10.3) mg/dL AST 68 H (13-35) U/L ALT 59 H (8-44) U/L Total Protein 5.3 L (6.2-8.2) g/dL Albumin 3.4 L (3.8-4.9) g/dL
[2022-11-09] MEDS: SODIUM CHLORIDE 0.45% 1,000 ML IV SCH (15:01)
[2022-11-09 15:43] LABS: Magnesium 1.7 mg/dL (1.5-2.4); Phosphorus 3.3 mg/dL (2.4-5.1); Triglycerides 87.2 mg/dL (0.00-149.00)
[2022-11-09] MEDS ORDERED: MAGNESIUM SULFATE-D5W PMX 1 GM in DEXTROSE/WATER 1 100ML.BAG IVPB ONE (18:00)
[2022-11-09] MEDS ORDERED: MVI, ADULT NO.4 WITH VIT K 10 ML, TRACE (CONC-1ML/DOSE) 1 ML in AMINO ACID 5%-D20W+LYTE... IV SCH ×3 (18:00)
[2022-11-09] MEDS: FAT EMULSION 20% 250 ML in EMPTY BAG 1 BAG IV SCH (22:55)
[2022-11-10] MEDS: KETOROLAC 15 MG/ML 1 ML VIAL IVP SCH ×3 (00:45→12:11)
[2022-11-10] MEDS: SODIUM CHLORIDE 0.45% 1,000 ML IV SCH ×2 (03:42→06:10)
[2022-11-10 07:48] LABS: Ionized Calcium 4.7 mg/dL (4.5-5.3)
[2022-11-10 07:53] LABS: ALT 51 U/L (4-34); AST 51 U/L (14-36); African American GFR (CKD) >90 (>60 ml/min/1.73 sqM); Albumin/Globulin Ratio 1.3; Alkaline Phosphatase 54 U/L (38-126); Anion Gap 5 mmol/L; Blood Urea Nitrogen 8 mg/dL (7-17); Calcium 8.1 mg/dL (8.4-10.2); Carbon Dioxide 25 mmol/L (22-30); Chloride 102 mmol/L (98-107); Globulin 2.3 g/dL; Glucose 121 mg/dL (74-99); Non-African American GFR(CKD) >90 (>60 ml/min/1.73 sqM); Phosphorus 2.5 mg/dL (2.5-4.5); Potassium 3.6 mmol/L (3.5-5.1); Sodium 132 mmol/L (137-145); Total Bilirubin 0.3 mg/dL (0.2-1.3); Total Protein 5.3 g/dL (6.3-8.2)
[2022-11-10] MEDS: PANTOPRAZOLE 40 MG/10 ML VIAL IVP SCH (09:19)
[2022-11-10] MEDS: ENOXAPARIN 40 MG/0.4 ML SYRINGE SQ SCH (09:19)
--- NOTE | 2022-11-10 12:56 | P.PN ---
Subjective Progress Note Date: 11/10/22 CHIEF COMPLAINT: SBO HISTORY OF PRESENT ILLNESS: Patient is postop day #2 status post exploratory laparotomy with lysis of adhesions and open cholecystectomy. Patient reports her pain is controlled. She denies any nausea or vomiting. No bowel activity. She has been up and ambulating. Her Prevana wound vac had been off because the battery needed to be charged. There has been charged. Wound VAC is now working. Afebrile. Na 132 K 3.6 cr 0.45 mg 2.0 LFTs trended down PHYSICAL EXAM: VITAL SIGNS: Reviewed. GENERAL: Well-developed in no acute distress. HEENT: No sclera icterus. Extraocular movements grossly intact. Moist buccal mucosa. Head is atraumatic, normocephalic. ABDOMEN: Soft. Prevana wound vac in place NEUROLOGIC: Alert and oriented. Cranial nerves II through XII grossly intact. ASSESSMENT: 1. Small bowel obstruction secondary to adhesions. Patient is status post lysis of adhesions 2. Hydropic gallbladder status post open cholecystectomy 3. History of abdominal surgery 4. Hypokalemia resolved 5. Elevated LFTs PLAN: -Continue clear liquid diet -Continue TPN for nutrition support -Continue pain management -Continue incentive spirometer -Encouraged patient to increase activity level -GI prophylaxis Protonix and DVT prophylaxis Lovenox Physician Appraiser Timber note has been reviewed by physician. Signing provider agrees with the documented findings, assessment, and plan of care. Objective - Vital Signs Vital signs: Vital Signs Temp 97.8 F 11/10/22 07:20 Pulse 79 11/10/22 07:20 Resp 14 11/10/22 07:20 BP 114/71 11/10/22 08:15 Pulse Ox 96 11/10/22 07:20 FiO2 Intake & Output 11/09/22 11/10/22 11/10/22 18:59 06:59 18:59 Intake Total 1450 360 Balance 1450 360 Weight 57.606 kg Intake: Intake, IV Titration 900 Amount Dextrose 5%-0.45% NaCl 1, 900 000 ml @ 100 mls/hr IV . Q10H [facility] Rx#:[id number] Oral 550 360 Other: # Voids 1 # Bowel Movements 0 - Labs CBC & Chem 7: 11/09/22 06:04 11/10/22 06:39 Labs: Abnormal Lab Results - Last 24 Hours (Table) 11/10/22 Range/Units 06:39 Sodium 132 L (137-145) mmol/L Creatinine 0.45 L (0.52-1.04) mg/dL Glucose 121 H (74-99) mg/dL Calcium 8.1 L (8.4-10.2) mg/dL AST 51 H (14-36) U/L ALT 51 H (4-34) U/L Total Protein 5.3 L (6.3-8.2) g/dL Albumin 3.0 L (3.5-5.0) g/dL
--- NOTE | 2022-11-10 16:03 | P.PN ---
Progress Note - Text Progress Note Date: 11/10/22 Chief Complaint: Abdominal pain This is a pleasant 82-year-old patient who follows with Dr. Nathan. Chronic stable medical conditions include hypertension, hyperlipidemia. 2 days patient had not been feeling well. She thought it was a viral bug. Subsequently around 2:00 in the morning she's developed increasing abdominal pain. With nausea vomiting. No fever no chills. Normally has a bowel movement every day. Small bowel in the morning.. Presented to [facility]. Computed tomography scan of the abdomen showed multiple dilated small bowel loops. Air-fluid levels. No transition point was seen. Patient was transferred down here for further intervention. General surgery was consulted. 11/04/2021 Patient presents with abdominal pain from [facility]. Patient today sitting in bed comfortable, she denies significant abdominal pain however she remains nothing by mouth. Also she denies melena in her bowel, since admission. She vomited once with a clear liquid last night but as above her abdominal pain is improving. Blood pressure is still high therefore we increased her clonidine patch 0.1-0.2 mg. Surgery team on the case 11/05/2022 Patient still complains from upper abdominal pain this morning, she's been having burning and some vomiting with bile. About twice earlier this morning. No bowel movement, she was started on lactulose Genetics on IV fluids, pain was controlled. Blood pressure is better controlled after increasing the dose of clonidine patch. 11/06/2022 Patient is currently able to ambulate in the hallway. No complaints of abdominal pain. No nausea or vomiting. Patient has not passed flatus yet. Bowel sounds are present. Patient is currently nothing by mouth and is being continued on IV hydration and pain medications as needed. Potassium level is 2.8 today which is being replaced. Patient has been afebrile. No cough or sputum production. Laboratory data showed sodium 137 potassium 2.8 chloride 103 bicarb is 18.6 BUN 10 and creatinine 0.5 and calcium 8.4. General surgery is on board. 11/07/2022: I resumed care of the patient today. Sitting up in a chair. She NG tube to suction. Had significant amount of diarrhea last night. Pending a computed tomography scan this afternoon. Family at the bedside. Abdominal pain better. 11/08/2022: Up in a chair. NG tube. Family the bedside. Flatus present. No abdominal pain. No nausea vomiting. Patient scheduled for surgery this afternoon. Had a lengthy discussion with the patient family the bedside. We will arrange for TPN starting tomorrow.. Communicated with the nurse and Gen. surgery. On D5W 11/09/2022: Patient underwent surgery yesterday. Lysis of adhesion. Open cholecystectomy. Started on clear liquids. at bedside. No nausea vomiting. Midline dressing. Binder. 11/11/2022: Up in a recliner. Clear liquid diet. Pain control. No flatus. Did ambulate. No nausea vomiting. Active Medications Acetaminophen (Acetaminophen Tab 325 Mg Tab) 650 mg PO Q6HR PRN PRN Reason: Mild Pain or Fever >= 100.5 Last Admin: 11/09/22 08:54 Dose: 650 mg Hydrocodone Bitart/Acetaminophen (Hydrocodone/Apap 5-325mg 1 Each Tab) 2 each PO Q6HR PRN PRN Reason: Severe Pain (Scale 7 to 10) Last Admin: 11/09/22 12:37 Dose: 2 each Benzocaine (Benzocaine [place] 1 Can) 1 spray MUCOUS MEM QID PRN; Protocol PRN Reason: Mouth Irritation Clonidine HCl (Clonidine 0.2 Mg/24hr Patch) 1 patch TRANSDERM Q7D [facility] Last Admin: 11/04/22 16:29 Dose: 1 patch Enoxaparin Sodium (Enoxaparin 40 Mg/0.4 Ml Syringe) 40 mg SQ DAILY [facility] Last Admin: 11/10/22 09:19 Dose: 40 mg Hydromorphone HCl (Hydromorphone 0.5 Mg/0.5 Ml Syringe) 0.5 mg IVP Q3HR PRN PRN Reason: Moderate Pain (Scale 4 to 6) Hydromorphone HCl (Hydromorphone 1 Mg/Ml 1 Ml Syringe) 1 mg IVP Q4HR PRN PRN Reason: Severe Pain (Scale 7 to 10) Sodium Chloride (Saline 0.45%) 1,000 mls @ 75 mls/hr IV .[id number] [facility] Last Admin: 11/10/22 06:10 Dose: 75 mls/hr Parenteral Vitamin Supplement 10 ml/ Zinc/Copper/Manganese/Selenium 1 ml/ Amino Ac/Electrol/Dextrose/Calcium 1,011 mls @ 30 mls/hr IV .Q24H [facility] Stop: 11/10/22 17:59 Last Admin: 11/09/22 17:52 Dose: 30 mls/hr Parenteral Vitamin Supplement 10 ml/ Zinc/Copper/Manganese/Selenium 1 ml/ Amino Ac/Electrol/Dextrose/Calcium 1,011 mls @ 70 mls/hr IV .BY DURATION [facility] Amino Ac/Electrol/Dextrose/Calcium (Clinimix E 5%-20% Solution) 1,000 mls @ 70 mls/hr IV .BY DURATION [facility] Fat Emulsion Intravenous 250 (ml/ IV Solution) 250 mls @ 21 mls/hr IV MoTh@2100 [facility] Last Admin: 11/09/22 22:55 Dose: 21 mls/hr Metoclopramide HCl (Metoclopramide 5 Mg/Ml 2 Ml Vial) 10 mg IVP Q6H PRN PRN Reason: Nausea And Vomiting Miscellaneous Information (Potassium Replacement Protocol 1 Each Misc) 1 each MISCELLANE DAILY PRN; Protocol PRN Reason: Per Protocol Morphine Sulfate (Morphine Sulfate 4 Mg/Ml Syringe) 4 mg IV Q4HR PRN PRN Reason: Severe Pain (Scale 7 to 10) Last Admin: 11/03/22 20:09 Dose: 4 mg Naloxone HCl (Naloxone 0.4 Mg/Ml 1 Ml Vial) 0.2 mg IV Q2M PRN PRN Reason: Opioid Reversal Ondansetron HCl (Ondansetron 4 Mg/2 Ml Vial) 4 mg IVP Q6HR PRN PRN Reason: Nausea And Vomiting Pantoprazole Sodium (Pantoprazole 40 Mg/10 Ml Vial) 40 mg IVP DAILY [facility] Last Admin: 11/10/22 09:19 Dose: 40 mg Past medical history to include: Hyperlipidemia, hypertension, Social history: . Lives with her . No smoking or alcohol. Physical examination: VITAL SIGNS: 97.5, 94, 15, 121/71, 98% room air GENERAL: Up in a recliner, comfortable EYES: Pupils equal. Conjunctiva normal. HEENT: External appearance of nose and ears normal, NG tube. Oral cavity dry NECK: JVD not raised; masses not palpable. HEART: First and second heart sounds are normal; no edema. LUNGS: Respiratory rate normal; clear to auscultation. ABDOMEN: Soft, mild tenderness, no guarding rigidity., liver spleen not palpable, no masses palpable. Midline dressing. Binder. PSYCH: Alert and oriented x3; mood and affect normal. MUSCULOSKELETAL:No Clubbing/cyanosis;muscles-grossly intact. OA INVESTIGATIONS, reviewed in the clinical context: November 10: Potassium 3.6 creatinine 0.45 sodium 132 albumin 3.0 November 09: White count 6.0 hemoglobin 11.3 potassium 3.4 creatinine 0.5 November 08: White count 5.1 hemoglobin 12.6 potassium 3.1. 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 Partial small bowel obstruction. Colonic diverticulosis. Blood work from [facility] shows: Urine drug screen negative Sodium 134 potassium 4.4 creatinine 0.5. Glucose 66 White count 5 hemoglobin 13.9 platelets 216 UA: Ketones 3+ Computed tomography scan multiple dilated small bowel loops with air-fluid levels. No transition point. Assessment and plan: -Acute small bowel obstruction with air-fluid levels. No transition point.: Not improving November 08: Lysis of adhesions and open cholecystectomy by Dr. Patel. Clear Liquids -Hypokalemia Replace -Essential hypertension Catapres patch 0.1 mg -Hyperlipidemia Zocor -Hyponatremia, mild Improves with oral intake. On TPN and lipids -Hypoalbuminemia, acute phase reactant -Hypoglycemia from poor oral intake: Better D5 0.45. -IV TPN and lipids Clear liquids. Increase activity. Getting IV TPN and lipids. Discussed with the patient. Change Catapres patch to Hyzaar
[2022-11-10] MEDS: 1: MVI, ADULT NO.4 WITH VIT K 10 ML, TRACE (CONC-1ML/DOSE) 1 ML in AMINO ACID 5%-D20W+LY IV SCH ×3 (17:55)
[2022-11-11] MEDS: PANTOPRAZOLE 40 MG/10 ML VIAL IVP SCH (09:23)
[2022-11-11] MEDS: 1: MVI, ADULT NO.4 WITH VIT K 10 ML, TRACE (CONC-1ML/DOSE) 1 ML in AMINO ACID 5%-D20W+LY IV SCH ×3 (09:24)
[2022-11-11] MEDS: ENOXAPARIN 40 MG/0.4 ML SYRINGE SQ SCH (09:24)
[2022-11-11] MEDS: LOSARTAN-HCTZ 50-12.5 MG 1 EACH TAB PO SCH (09:24)
[2022-11-11] MEDS: LOSARTAN 50 MG TAB PO SCH (09:24)
[2022-11-11] MEDS: MULTIVITAMINS, THERA 1 EACH TAB PO SCH (09:25)
--- NOTE | 2022-11-11 09:40 | P.PN ---
Progress Note - Text Progress Note Date: 11/11/22 Patient is requesting something more to 8. On exam vital signs are stable. Abdomen is soft. Incisions clean dry tach. Status post lysis of adhesion and "second for chronic cholecystitis. Patient will have her diet advanced as tolerated. Weight is a discharge home the next 48 hours.
[2022-11-11 09:47] LABS: Magnesium 1.9 mg/dL (1.5-2.4); Phosphorus 3.1 mg/dL (2.4-5.1)
[2022-11-11 09:50] LABS: African American GFR (CKD) 108.3 (60.0-200.0); Anion Gap 10.3 mmol/L (10.00-18.00); BUN/Creat Ratio 24.15 Ratio (12.00-20.00); Blood Urea Nitrogen 11.3 mg/dL (9.0-27.0); Calcium 8.3 mg/dL (8.7-10.3); Carbon Dioxide 22.7 mmol/L (20.0-27.5); Non-African American GFR(CKD) 93.4 (60.0-200.0); Potassium 3.9 mmol/L (3.5-5.5)
--- NOTE | 2022-11-11 18:45 | P.PN ---
Progress Note - Text Progress Note Date: 11/11/22 Chief Complaint: Abdominal pain This is a pleasant 82-year-old patient who follows with Dr. Nathan. Chronic stable medical conditions include hypertension, hyperlipidemia. 2 days patient had not been feeling well. She thought it was a viral bug. Subsequently around 2:00 in the morning she's developed increasing abdominal pain. With nausea vomiting. No fever no chills. Normally has a bowel movement every day. Small bowel in the morning.. Presented to [facility]. Computed tomography scan of the abdomen showed multiple dilated small bowel loops. Air-fluid levels. No transition point was seen. Patient was transferred down here for further intervention. General surgery was consulted. 11/04/2021 Patient presents with abdominal pain from [facility]. Patient today sitting in bed comfortable, she denies significant abdominal pain however she remains nothing by mouth. Also she denies melena in her bowel, since admission. She vomited once with a clear liquid last night but as above her abdominal pain is improving. Blood pressure is still high therefore we increased her clonidine patch 0.1-0.2 mg. Surgery team on the case 11/05/2022 Patient still complains from upper abdominal pain this morning, she's been having burning and some vomiting with bile. About twice earlier this morning. No bowel movement, she was started on lactulose Genetics on IV fluids, pain was controlled. Blood pressure is better controlled after increasing the dose of clonidine patch. 11/06/2022 Patient is currently able to ambulate in the hallway. No complaints of abdominal pain. No nausea or vomiting. Patient has not passed flatus yet. Bowel sounds are present. Patient is currently nothing by mouth and is being continued on IV hydration and pain medications as needed. Potassium level is 2.8 today which is being replaced. Patient has been afebrile. No cough or sputum production. Laboratory data showed sodium 137 potassium 2.8 chloride 103 bicarb is 18.6 BUN 10 and creatinine 0.5 and calcium 8.4. General surgery is on board. 11/07/2022: I resumed care of the patient today. Sitting up in a chair. She NG tube to suction. Had significant amount of diarrhea last night. Pending a computed tomography scan this afternoon. Family at the bedside. Abdominal pain better. 11/08/2022: Up in a chair. NG tube. Family the bedside. Flatus present. No abdominal pain. No nausea vomiting. Patient scheduled for surgery this afternoon. Had a lengthy discussion with the patient family the bedside. We will arrange for TPN starting tomorrow.. Communicated with the nurse and Gen. surgery. On D5W 11/09/2022: Patient underwent surgery yesterday. Lysis of adhesion. Open cholecystectomy. Started on clear liquids. at bedside. No nausea vomiting. Midline dressing. Binder. 11/11/2022: Up in a recliner. Clear liquid diet. Pain control. No flatus. Did ambulate. No nausea vomiting. 11/12/2022: Sitting up in the window bench. On liquid diet. No flatus. Did walk in the hallway. Discussed with patient at the bedside. Diet advanced per surgery. Getting IV TPN and lipids. Active Medications Acetaminophen (Acetaminophen Tab 325 Mg Tab) 650 mg PO Q6HR PRN PRN Reason: Mild Pain or Fever >= 100.5 Last Admin: 11/09/22 08:54 Dose: 650 mg Hydrocodone Bitart/Acetaminophen (Hydrocodone/Apap 5-325mg 1 Each Tab) 2 each PO Q6HR PRN PRN Reason: Severe Pain (Scale 7 to 10) Last Admin: 11/09/22 12:37 Dose: 2 each Benzocaine (Benzocaine [place] 1 Can) 1 spray MUCOUS MEM QID PRN; Protocol PRN Reason: Mouth Irritation Enoxaparin Sodium (Enoxaparin 40 Mg/0.4 Ml Syringe) 40 mg SQ DAILY [facility] Last Admin: 11/11/22 09:24 Dose: 40 mg HCTZ/Losartan Potassium (Losartan-Hctz 50-12.5 Mg 1 Each Tab) 1 each PO DAILY [facility] Last Admin: 11/11/22 09:24 Dose: 1 each Hydromorphone HCl (Hydromorphone 0.5 Mg/0.5 Ml Syringe) 0.5 mg IVP Q3HR PRN PRN Reason: Moderate Pain (Scale 4 to 6) Hydromorphone HCl (Hydromorphone 1 Mg/Ml 1 Ml Syringe) 1 mg IVP Q4HR PRN PRN Reason: Severe Pain (Scale 7 to 10) Parenteral Vitamin Supplement 10 ml/ Zinc/Copper/Manganese/Selenium 1 ml/ Amino Ac/Electrol/Dextrose/Calcium 1,011 mls @ 70 mls/hr IV .BY DURATION [facility] Amino Ac/Electrol/Dextrose/Calcium (Clinimix E 5%-20% Solution) 1,000 mls @ 70 mls/hr IV .BY DURATION [facility] Last Admin: 11/11/22 09:24 Dose: 70 mls/hr Fat Emulsion Intravenous 250 (ml/ IV Solution) 250 mls @ 21 mls/hr IV MoTh@2100 [facility] Last Admin: 11/09/22 22:55 Dose: 21 mls/hr Losartan Potassium (Losartan 50 Mg Tab) 50 mg PO DAILY [facility] Last Admin: 11/11/22 09:24 Dose: 50 mg Metoclopramide HCl (Metoclopramide 5 Mg/Ml 2 Ml Vial) 10 mg IVP Q6H PRN PRN Reason: Nausea And Vomiting Miscellaneous Information (Potassium Replacement Protocol 1 Each Misc) 1 each MISCELLANE DAILY PRN; Protocol PRN Reason: Per Protocol Morphine Sulfate (Morphine Sulfate 4 Mg/Ml Syringe) 4 mg IV Q4HR PRN PRN Reason: Severe Pain (Scale 7 to 10) Last Admin: 11/03/22 20:09 Dose: 4 mg Multivitamins (Multivitamins, Thera 1 Each Tab) 1 each PO DAILY [facility] Last Admin: 11/11/22 09:25 Dose: Not Given Naloxone HCl (Naloxone 0.4 Mg/Ml 1 Ml Vial) 0.2 mg IV Q2M PRN PRN Reason: Opioid Reversal Ondansetron HCl (Ondansetron 4 Mg/2 Ml Vial) 4 mg IVP Q6HR PRN PRN Reason: Nausea And Vomiting Pantoprazole Sodium (Pantoprazole 40 Mg/10 Ml Vial) 40 mg IVP DAILY [facility] Last Admin: 11/11/22 09:23 Dose: 40 mg Past medical history to include: Hyperlipidemia, hypertension, Social history: . Lives with her . No smoking or alcohol. Physical examination: VITAL SIGNS: 97.5, 101, 15, 148 with 79, 99% room air GENERAL: Sitting up comfortable EYES: Pupils equal. Conjunctiva normal. HEENT: External appearance of nose and ears normal, NG tube. Oral cavity dry NECK: JVD not raised; masses not palpable. HEART: First and second heart sounds are normal; no edema. LUNGS: Respiratory rate normal; clear to auscultation. ABDOMEN: Soft, mild tenderness, no guarding rigidity., liver spleen not palpable, no masses palpable. Midline dressing. Binder. PSYCH: Alert and oriented x3; mood and affect normal. MUSCULOSKELETAL:No Clubbing/cyanosis;muscles-grossly intact. OA INVESTIGATIONS, reviewed in the clinical context: November 11: Fashion 3.9 BUN 11.3 creatinine 0.5 November 10: Potassium 3.6 creatinine 0.45 sodium 132 albumin 3.0 November 09: White count 6.0 hemoglobin 11.3 potassium 3.4 creatinine 0.5 November 08: White count 5.1 hemoglobin 12.6 potassium 3.1. 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 Colonic diverticulosis. Blood work from [facility] shows: Urine drug screen negative Sodium 134 potassium 4.4 creatinine 0.5. Glucose 66 White count 5 hemoglobin 13.9 platelets 216 UA: Ketones 3+ Computed tomography scan multiple dilated small bowel loops with air-fluid levels. No transition point. Assessment and plan: -Acute small bowel obstruction with air-fluid levels. No transition point.: Not improving November 08: Lysis of adhesions and open cholecystectomy by Dr. Patel. Clear Liquids -Hypokalemia: Better Replace -Essential hypertension Hyzaar 50/12.5. Cozaar -Hyperlipidemia Zocor -Hyponatremia, mild Improves with oral intake. On TPN and lipids -Hypoalbuminemia, acute phase reactant -Hypoglycemia from poor oral intake: Better -IV TPN and lipids Doing better. Continue to increase activity. TPN and lipids. Diet is being advanced per Dr. Patel. Discussed with the patient and her
[2022-11-12] MEDS: 1: MVI, ADULT NO.4 WITH VIT K 10 ML, TRACE (CONC-1ML/DOSE) 1 ML in AMINO ACID 5%-D20W+LY IV SCH ×6 (00:17→12:58)
[2022-11-12] MEDS: MULTIVITAMINS, THERA 1 EACH TAB PO SCH (08:15)
[2022-11-12] MEDS: ENOXAPARIN 40 MG/0.4 ML SYRINGE SQ SCH (08:16)
[2022-11-12] MEDS: LOSARTAN 50 MG TAB PO SCH (08:16)
[2022-11-12] MEDS: LOSARTAN-HCTZ 50-12.5 MG 1 EACH TAB PO SCH (08:16)
[2022-11-12] MEDS: PANTOPRAZOLE 40 MG/10 ML VIAL IVP SCH (08:45)
[2022-11-12 09:56] LABS: Anion Gap 8.8 mmol/L (10.00-18.00); BUN/Creat Ratio 25.21 Ratio (12.00-20.00); Blood Urea Nitrogen 11.9 mg/dL (9.0-27.0); Calcium 8.7 mg/dL (8.7-10.3); Magnesium 1.9 mg/dL (1.5-2.4); Non-African American GFR(CKD) 93.2 (60.0-200.0); Phosphorus 3.4 mg/dL (2.4-5.1); Potassium 3.8 mmol/L (3.5-5.5)
--- NOTE | 2022-11-12 11:17 | P.PN ---
Progress Note - Text Progress Note Date: 11/12/22 Patient feels better today. She still is on a bowel movement. She is passing flatus. On exam vital signs are stable. Abdomen soft. Incisions clean and intact. Patient will have her diet advanced once her bowel function returns.
--- NOTE | 2022-11-12 14:36 | P.PN ---
Progress Note - Text Progress Note Date: 11/12/22 Chief Complaint: Abdominal pain This is a pleasant 82-year-old patient who follows with Dr. Nathan. Chronic stable medical conditions include hypertension, hyperlipidemia. 2 days patient had not been feeling well. She thought it was a viral bug. Subsequently around 2:00 in the morning she's developed increasing abdominal pain. With nausea vomiting. No fever no chills. Normally has a bowel movement every day. Small bowel in the morning.. Presented to [facility]. Computed tomography scan of the abdomen showed multiple dilated small bowel loops. Air-fluid levels. No transition point was seen. Patient was transferred down here for further intervention. General surgery was consulted. 11/04/2021 Patient presents with abdominal pain from [facility]. Patient today sitting in bed comfortable, she denies significant abdominal pain however she remains nothing by mouth. Also she denies melena in her bowel, since admission. She vomited once with a clear liquid last night but as above her abdominal pain is improving. Blood pressure is still high therefore we increased her clonidine patch 0.1-0.2 mg. Surgery team on the case 11/05/2022 Patient still complains from upper abdominal pain this morning, she's been having burning and some vomiting with bile. About twice earlier this morning. No bowel movement, she was started on lactulose Genetics on IV fluids, pain was controlled. Blood pressure is better controlled after increasing the dose of clonidine patch. 11/06/2022 Patient is currently able to ambulate in the hallway. No complaints of abdominal pain. No nausea or vomiting. Patient has not passed flatus yet. Bowel sounds are present. Patient is currently nothing by mouth and is being continued on IV hydration and pain medications as needed. Potassium level is 2.8 today which is being replaced. Patient has been afebrile. No cough or sputum production. Laboratory data showed sodium 137 potassium 2.8 chloride 103 bicarb is 18.6 BUN 10 and creatinine 0.5 and calcium 8.4. General surgery is on board. 11/07/2022: I resumed care of the patient today. Sitting up in a chair. She NG tube to suction. Had significant amount of diarrhea last night. Pending a computed tomography scan this afternoon. Family at the bedside. Abdominal pain better. 11/08/2022: Up in a chair. NG tube. Family the bedside. Flatus present. No abdominal pain. No nausea vomiting. Patient scheduled for surgery this afternoon. Had a lengthy discussion with the patient family the bedside. We will arrange for TPN starting tomorrow.. Communicated with the nurse and Gen. surgery. On D5W 11/09/2022: Patient underwent surgery yesterday. Lysis of adhesion. Open cholecystectomy. Started on clear liquids. at bedside. No nausea vomiting. Midline dressing. Binder. 11/10/2022: Up in a recliner. Clear liquid diet. Pain control. No flatus. Did ambulate. No nausea vomiting. 11/11/2022: Sitting up in the window bench. On liquid diet. No flatus. Did walk in the hallway. Discussed with patient at the bedside. Diet advanced per surgery. Getting IV TPN and lipids. 11/12/2022: Sitting up in a chair. Eating better. No flatus. And bleeding in the hallway. IV team and lipids. Patient scared to eat because of no BM. Did tell the patient that without flatus and BM a lot of discharge the patient. Keep up with activity. Active Medications Acetaminophen (Acetaminophen Tab 325 Mg Tab) 650 mg PO Q6HR PRN PRN Reason: Mild Pain or Fever >= 100.5 Last Admin: 11/09/22 08:54 Dose: 650 mg Hydrocodone Bitart/Acetaminophen (Hydrocodone/Apap 5-325mg 1 Each Tab) 2 each PO Q6HR PRN PRN Reason: Severe Pain (Scale 7 to 10) Last Admin: 11/09/22 12:37 Dose: 2 each Benzocaine (Benzocaine [place] 1 Can) 1 spray MUCOUS MEM QID PRN; Protocol PRN Reason: Mouth Irritation Enoxaparin Sodium (Enoxaparin 40 Mg/0.4 Ml Syringe) 40 mg SQ DAILY [facility] Last Admin: 11/12/22 08:16 Dose: 40 mg HCTZ/Losartan Potassium (Losartan-Hctz 50-12.5 Mg 1 Each Tab) 1 each PO DAILY [facility] Last Admin: 11/12/22 08:16 Dose: 1 each Hydromorphone HCl (Hydromorphone 0.5 Mg/0.5 Ml Syringe) 0.5 mg IVP Q3HR PRN PRN Reason: Moderate Pain (Scale 4 to 6) Hydromorphone HCl (Hydromorphone 1 Mg/Ml 1 Ml Syringe) 1 mg IVP Q4HR PRN PRN Reason: Severe Pain (Scale 7 to 10) Parenteral Vitamin Supplement 10 ml/ Zinc/Copper/Manganese/Selenium 1 ml/ Amino Ac/Electrol/Dextrose/Calcium 1,011 mls @ 70 mls/hr IV .BY DURATION [facility] Last Admin: 11/12/22 12:58 Dose: 70 mls/hr Amino Ac/Electrol/Dextrose/Calcium (Clinimix E 5%-20% Solution) 1,000 mls @ 70 mls/hr IV .BY DURATION [facility] Last Admin: 11/12/22 00:17 Dose: 70 mls/hr Fat Emulsion Intravenous 250 (ml/ IV Solution) 250 mls @ 21 mls/hr IV MoTh@2100 [facility] Last Admin: 11/09/22 22:55 Dose: 21 mls/hr Losartan Potassium (Losartan 50 Mg Tab) 50 mg PO DAILY [facility] Last Admin: 11/12/22 08:16 Dose: 50 mg Metoclopramide HCl (Metoclopramide 5 Mg/Ml 2 Ml Vial) 10 mg IVP Q6H PRN PRN Reason: Nausea And Vomiting Miscellaneous Information (Potassium Replacement Protocol 1 Each Misc) 1 each MISCELLANE DAILY PRN; Protocol PRN Reason: Per Protocol Morphine Sulfate (Morphine Sulfate 4 Mg/Ml Syringe) 4 mg IV Q4HR PRN PRN Reason: Severe Pain (Scale 7 to 10) Last Admin: 11/03/22 20:09 Dose: 4 mg Multivitamins (Multivitamins, Thera 1 Each Tab) 1 each PO DAILY [facility] Last Admin: 11/12/22 08:15 Dose: Not Given Naloxone HCl (Naloxone 0.4 Mg/Ml 1 Ml Vial) 0.2 mg IV Q2M PRN PRN Reason: Opioid Reversal Ondansetron HCl (Ondansetron 4 Mg/2 Ml Vial) 4 mg IVP Q6HR PRN PRN Reason: Nausea And Vomiting Pantoprazole Sodium (Pantoprazole 40 Mg/10 Ml Vial) 40 mg IVP DAILY [facility] Last Admin: 11/12/22 08:45 Dose: 40 mg Past medical history to include: Hyperlipidemia, hypertension, Social history: . Lives with her . No smoking or alcohol. Physical examination: VITAL SIGNS: 98.6, 89, 15, 1 55 x 77, 98% room air GENERAL: Sitting up in chair comfortable EYES: Pupils equal. Conjunctiva normal. HEENT: External appearance of nose and ears normal, NG tube. Oral cavity dry NECK: JVD not raised; masses not palpable. HEART: First and second heart sounds are normal; no edema. LUNGS: Respiratory rate normal; clear to auscultation. ABDOMEN: Soft, minimal tenderness, no guarding rigidity., liver spleen not palpable, no masses palpable. Midline dressing. Binder. PSYCH: Alert and oriented x3; mood and affect normal. MUSCULOSKELETAL:No Clubbing/cyanosis;muscles-grossly intact. OA INVESTIGATIONS, reviewed in the clinical context: November 12: Potassium 3.8 crit 0.5 November 11: Fashion 3.9 BUN 11.3 creatinine 0.5 November 10: Potassium 3.6 creatinine 0.45 sodium 132 albumin 3.0 November 09: White count 6.0 hemoglobin 11.3 potassium 3.4 creatinine 0.5 November 08: White count 5.1 hemoglobin 12.6 potassium 3.1. 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 Partial small bowel obstruction. Colonic diverticulosis. Blood work from [facility] shows: Urine drug screen negative Sodium 134 potassium 4.4 creatinine 0.5. Glucose 66 White count 5 hemoglobin 13.9 platelets 216 UA: Ketones 3+ Computed tomography scan multiple dilated small bowel loops with air-fluid levels. No transition point. Assessment and plan: -Acute small bowel obstruction with air-fluid levels. No transition point.: Status post surgery November 08: Lysis of adhesions and open cholecystectomy by Dr. Patel. Regular diet. No flatus no BM. -Hypokalemia: Better Replace -Essential hypertension Hyzaar 50/12.5. Cozaar -Hyperlipidemia Zocor -Hyponatremia, mild Improves with oral intake. On TPN and lipids -Hypoalbuminemia, acute phase reactant -Hypoglycemia from poor oral intake: Better -IV TPN and lipids Tolerating diet. Total increase diet. Continue increased activity. Await flatus/BM before DC
[2022-11-13] MEDS: 1: MVI, ADULT NO.4 WITH VIT K 10 ML, TRACE (CONC-1ML/DOSE) 1 ML in AMINO ACID 5%-D20W+LY IV SCH ×3 (01:26)
--- NOTE | 2022-11-13 07:06 | XR ---
EXAMINATION TYPE: XR abdomen 2V DATE OF EXAM: 11/13/2022 CLINICAL HISTORY: Recent surgery without bowel movement. TECHNIQUE: Supine and upright views of the abdomen are obtained. COMPARISON: CT abdomen and pelvis 6 days ago. FINDINGS: There are new vertical oriented overlying skin carla. Contrast from CT is progressed into colon on current study. Contrast material is seen in nondistended colon. Some gas is seen in slightl y prominent transverse colon. Gas is seen in nondistended small bowel loops. No free air. There is la teral right basilar linear atelectasis. Slight scoliotic curvature with multilevel spurring in the sp ine is redemonstrated. IMPRESSION: Overall nonspecific but felt to be nonobstructive bowel gas pattern.
[2022-11-13 07:16] LABS: African American GFR (CKD) >90 (>60 ml/min/1.73 sqM); Anion Gap 6 mmol/L; Blood Urea Nitrogen 15 mg/dL (7-17); Calcium 8.7 mg/dL (8.4-10.2); Carbon Dioxide 27 mmol/L (22-30); Chloride 98 mmol/L (98-107); Glucose 142 mg/dL (74-99); Non-African American GFR(CKD) >90 (>60 ml/min/1.73 sqM); Phosphorus 3.9 mg/dL (2.5-4.5); Potassium 4.1 mmol/L (3.5-5.1); Sodium 131 mmol/L (137-145)
[2022-11-13] MEDS: PANTOPRAZOLE 40 MG/10 ML VIAL IVP SCH (09:54)
[2022-11-13] MEDS: LOSARTAN-HCTZ 50-12.5 MG 1 EACH TAB PO SCH (09:54)
[2022-11-13] MEDS: LOSARTAN 50 MG TAB PO SCH (09:54)
[2022-11-13] MEDS: ENOXAPARIN 40 MG/0.4 ML SYRINGE SQ SCH (09:54)
[2022-11-13] MEDS: MULTIVITAMINS, THERA 1 EACH TAB PO SCH (09:54)
[2022-11-13] MEDS ORDERED: bisacodyL 10 MG SUPP RECTAL STA (10:45)
[2022-11-13] MEDS ORDERED: LACTULOSE 20 GM/30 ML CUP PO ONE (14:00)
--- NOTE | 2022-11-13 14:07 | P.PN ---
Subjective Progress Note Date: 11/13/22 CHIEF COMPLAINT: SBO HISTORY OF PRESENT ILLNESS: Patient is postop day #5 status post exploratory laparotomy with lysis of adhesions and open cholecystectomy. Patient complaining of constipation. She stopped having any flatus. She feels bloated. She feels nauseous. Denies any vomiting. Abdominal x-ray was showing a nonspecific bowel gas pattern. Afebrile. Sodium 131 potassium is 4.1 creatinine 0.39 magnesium 2.0 patient currently on a regular diet. But she reports poor oral intake. PHYSICAL EXAM: VITAL SIGNS: Reviewed. GENERAL: Well-developed in no acute distress. HEENT: No sclera icterus. Extraocular movements grossly intact. Moist buccal mucosa. Head is atraumatic, normocephalic. ABDOMEN: Mildly distended. Prevana wound vac in place NEUROLOGIC: Alert and oriented. Cranial nerves II through XII grossly intact. ASSESSMENT: 1. Small bowel obstruction secondary to adhesions. Patient is status post lysis of adhesions 2. Hydropic gallbladder status post open cholecystectomy 3. History of abdominal surgery 4. Hypokalemia resolved PLAN: -Downgrade diet to full liquids due to abdominal bloating and distention -Lactulose and duplex suppository ordered for constipation -Continue TPN -Continue incentive spirometer -Encouraged patient to increase activity level -GI prophylaxis Protonix and DVT prophylaxis Lovenox [employer] note has been reviewed by physician. Signing provider agrees with the documented findings, assessment, and plan of care. Objective - Vital Signs Vital signs: Vital Signs Temp 97.5 F L 11/13/22 08:02 Pulse 94 11/13/22 08:02 Resp 16 11/13/22 08:02 BP 124/65 11/13/22 08:02 Pulse Ox 97 11/13/22 08:02 FiO2 Intake & Output 11/12/22 11/13/22 11/13/22 18:59 06:59 18:59 Intake Total 1525 600 Balance 1525 600 Intake: Intake, IV Titration 1000 Amount Amino Acid 5%-D20w+Lytes* 1000 E* 1,000 ml @ 70 mls/hr IV .BY DURATION [facility] Rx#: [id number] Oral 525 600 Other: Voiding Method Bedside Commode Toilet # Voids 3 1 - Labs CBC & Chem 7: 11/09/22 06:04 11/13/22 06:10 Labs: Abnormal Lab Results - Last 24 Hours (Table) 11/13/22 Range/Units 06:10 Sodium 131 L (137-145) mmol/L Creatinine 0.39 L (0.52-1.04) mg/dL Glucose 142 H (74-99) mg/dL
[2022-11-13] MEDS: 1: MVI, ADULT NO.4 WITH VIT K 10 ML, TRACE (CONC-1ML/DOSE) 1 ML, SODIUM CHLORIDE 4MEQ/ML IV SCH ×4 (14:59)
--- NOTE | 2022-11-13 17:12 | P.PN ---
Progress Note - Text Progress Note Date: 11/13/22 Chief Complaint: Abdominal pain This is a pleasant 82-year-old patient who follows with Dr. Nathan. Chronic stable medical conditions include hypertension, hyperlipidemia. 2 days patient had not been feeling well. She thought it was a viral bug. Subsequently around 2:00 in the morning she's developed increasing abdominal pain. With nausea vomiting. No fever no chills. Normally has a bowel movement every day. Small bowel in the morning.. Presented to [facility], [place]. Computed tomography scan of the abdomen showed multiple dilated small bowel loops. Air-fluid levels. No transition point was seen. Patient was transferred down here for further intervention. General surgery was consulted. 11/04/2021 Patient presents with abdominal pain from [facility]. Patient today sitting in bed comfortable, she denies significant abdominal pain however she remains nothing by mouth. Also she denies melena in her bowel, since admission. She vomited once with a clear liquid last night but as above her abdominal pain is improving. Blood pressure is still high therefore we increased her clonidine patch 0.1-0.2 mg. Surgery team on the case 11/05/2022 Patient still complains from upper abdominal pain this morning, she's been having burning and some vomiting with bile. About twice earlier this morning. No bowel movement, she was started on lactulose Genetics on IV fluids, pain was controlled. Blood pressure is better controlled after increasing the dose of clonidine patch. 11/06/2022 Patient is currently able to ambulate in the hallway. No complaints of abdominal pain. No nausea or vomiting. Patient has not passed flatus yet. Bowel sounds are present. Patient is currently nothing by mouth and is being continued on IV hydration and pain medications as needed. Potassium level is 2.8 today which is being replaced. Patient has been afebrile. No cough or sputum production. Laboratory data showed sodium 137 potassium 2.8 chloride 103 bicarb is 18.6 BUN 10 and creatinine 0.5 and calcium 8.4. General surgery is on board. 11/07/2022: I resumed care of the patient today. Sitting up in a chair. She NG tube to suction. Had significant amount of diarrhea last night. Pending a computed tomography scan this afternoon. Family at the bedside. Abdominal pain better. 11/08/2022: Up in a chair. NG tube. Family the bedside. Flatus present. No abdominal pain. No nausea vomiting. Patient scheduled for surgery this afternoon. Had a lengthy discussion with the patient family the bedside. We will arrange for TPN starting tomorrow.. Communicated with the nurse and Gen. surgery. On D5W 11/09/2022: Patient underwent surgery yesterday. Lysis of adhesion. Open cholecystectomy. Started on clear liquids. at bedside. No nausea vomiting. Midline dressing. Binder. 11/10/2022: Up in a recliner. Clear liquid diet. Pain control. No flatus. Did ambulate. No nausea vomiting. 11/11/2022: Sitting up in the window bench. On liquid diet. No flatus. Did walk in the hallway. Discussed with patient at the bedside. Diet advanced per surgery. Getting IV TPN and lipids. 11/12/2022: Sitting up in a chair. Eating better. No flatus. And bleeding in the hallway. IV team and lipids. Patient scared to eat because of no BM. Did tell the patient that without flatus and BM a lot of discharge the patient. Keep up with activity. 11/13/2022: Up in a chair. Afraid to eat because of no BM. Had flatus. Has been ambulating. Getting TPN and lipids.. Abdominal x-ray from this morning no ileus. No nausea vomiting. No abdominal pain. Active Medications Acetaminophen (Acetaminophen Tab 325 Mg Tab) 650 mg PO Q6HR PRN PRN Reason: Mild Pain or Fever >= 100.5 Last Admin: 11/09/22 08:54 Dose: 650 mg Hydrocodone Bitart/Acetaminophen (Hydrocodone/Apap 5-325mg 1 Each Tab) 2 each PO Q6HR PRN PRN Reason: Severe Pain (Scale 7 to 10) Last Admin: 11/09/22 12:37 Dose: 2 each Benzocaine (Benzocaine [place] 1 Can) 1 spray MUCOUS MEM QID PRN; Protocol PRN Reason: Mouth Irritation Enoxaparin Sodium (Enoxaparin 40 Mg/0.4 Ml Syringe) 40 mg SQ DAILY [facility] Last Admin: 11/13/22 09:54 Dose: 40 mg HCTZ/Losartan Potassium (Losartan-Hctz 50-12.5 Mg 1 Each Tab) 1 each PO DAILY [facility] Last Admin: 11/13/22 09:54 Dose: 1 each Hydromorphone HCl (Hydromorphone 0.5 Mg/0.5 Ml Syringe) 0.5 mg IVP Q3HR PRN PRN Reason: Moderate Pain (Scale 4 to 6) Hydromorphone HCl (Hydromorphone 1 Mg/Ml 1 Ml Syringe) 1 mg IVP Q4HR PRN PRN Reason: Severe Pain (Scale 7 to 10) Fat Emulsion Intravenous 250 (ml/ IV Solution) 250 mls @ 21 mls/hr IV MoTh@2100 [facility] Last Admin: 11/09/22 22:55 Dose: 21 mls/hr Parenteral Vitamin Supplement 10 ml/ Zinc/Copper/Manganese/Selenium 1 ml/ Sodium Chloride 12 meq/ Amino Ac/Electrol/Dextrose/Calcium 1,014 mls @ 70 mls/hr IV .BY DURATION [facility] Sodium Chloride 12 meq/ Amino (Ac/Electrol/Dextrose/Calcium) 1,003 mls @ 70 mls/hr IV .BY DURATION [facility] Last Admin: 11/13/22 14:59 Dose: 70 mls/hr Losartan Potassium (Losartan 50 Mg Tab) 50 mg PO DAILY [facility] Last Admin: 11/13/22 09:54 Dose: 50 mg Metoclopramide HCl (Metoclopramide 5 Mg/Ml 2 Ml Vial) 10 mg IVP Q6H PRN PRN Reason: Nausea And Vomiting Miscellaneous Information (Potassium Replacement Protocol 1 Each Misc) 1 each MISCELLANE DAILY PRN; Protocol PRN Reason: Per Protocol Morphine Sulfate (Morphine Sulfate 4 Mg/Ml Syringe) 4 mg IV Q4HR PRN PRN Reason: Severe Pain (Scale 7 to 10) Last Admin: 11/03/22 20:09 Dose: 4 mg Multivitamins (Multivitamins, Thera 1 Each Tab) 1 each PO DAILY [facility] Last Admin: 11/13/22 09:54 Dose: Not Given Naloxone HCl (Naloxone 0.4 Mg/Ml 1 Ml Vial) 0.2 mg IV Q2M PRN PRN Reason: Opioid Reversal Ondansetron HCl (Ondansetron 4 Mg/2 Ml Vial) 4 mg IVP Q6HR PRN PRN Reason: Nausea And Vomiting Pantoprazole Sodium (Pantoprazole 40 Mg/10 Ml Vial) 40 mg IVP DAILY [facility] Last Admin: 11/13/22 09:54 Dose: 40 mg Past medical history to include: Hyperlipidemia, hypertension, Social history: . Lives with her . No smoking or alcohol. Physical examination: VITAL SIGNS: 97.6, 99, 17, 148/72, 98% room air GENERAL: Sitting up in chair comfortable EYES: Pupils equal. Conjunctiva normal. HEENT: External appearance of nose and ears normal, NG tube. Oral cavity dry NECK: JVD not raised; masses not palpable. HEART: First and second heart sounds are normal; no edema. LUNGS: Respiratory rate normal; clear to auscultation. ABDOMEN: Soft, minimal tenderness, no guarding rigidity., liver spleen not palpable, no masses palpable. Midline dressing. Binder. PSYCH: Alert and oriented x3; mood and affect normal. MUSCULOSKELETAL:No Clubbing/cyanosis;muscles-grossly intact. OA INVESTIGATIONS, reviewed in the clinical context: November 13: Potassium 4.1 creatinine 0.39 November 12: Potassium 3.8 crit 0.5 November 11: Fashion 3.9 BUN 11.3 creatinine 0.5 November 10: Potassium 3.6 creatinine 0.45 sodium 132 albumin 3.0 November 09: White count 6.0 hemoglobin 11.3 potassium 3.4 creatinine 0.5 November 08: White count 5.1 hemoglobin 12.6 potassium 3.1. 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 Partial small bowel obstruction. Colonic diverticulosis. Blood work from [facility] [place] shows: Urine drug screen negative Sodium 134 potassium 4.4 creatinine 0.5. Glucose 66 White count 5 hemoglobin 13.9 platelets 216 UA: Ketones 3+ Computed tomography scan multiple dilated small bowel loops with air-fluid levels. No transition point. Assessment and plan: -Acute small bowel obstruction with air-fluid levels. No transition point.: Status post surgery November 08: Lysis of adhesions and open cholecystectomy by Dr. Patel. Regular diet. No flatus no BM. -Hypokalemia: Better Replace -Essential hypertension Hyzaar 50/12.5. Cozaar -Hyperlipidemia Zocor -Hyponatremia, mild Improves with oral intake. On TPN and lipids -Hypoalbuminemia, acute phase reactant -Hypoglycemia from poor oral intake: Better -IV TPN and lipids Continue with activity current medications. Has passed flatus, but no BM. Will DC after BMs obtained
[2022-11-13] MEDS: FAT EMULSION 20% 250 ML in EMPTY BAG 1 BAG IV SCH (21:35)
[2022-11-14] MEDS: 1: MVI, ADULT NO.4 WITH VIT K 10 ML, TRACE (CONC-1ML/DOSE) 1 ML, SODIUM CHLORIDE 4MEQ/ML IV SCH ×4 (04:41)
[2022-11-14 06:58] LABS: African American GFR (CKD) >90 (>60 ml/min/1.73 sqM); Anion Gap 8 mmol/L; Blood Urea Nitrogen 17 mg/dL (7-17); Calcium 8.8 mg/dL (8.4-10.2); Carbon Dioxide 28 mmol/L (22-30); Chloride 96 mmol/L (98-107); Glucose 123 mg/dL (74-99); Magnesium 2.1 mg/dL (1.6-2.3); Non-African American GFR(CKD) >90 (>60 ml/min/1.73 sqM); Phosphorus 4.5 mg/dL (2.5-4.5); Potassium 4.5 mmol/L (3.5-5.1); Sodium 132 mmol/L (137-145)
[2022-11-14 07:52] VITALS: RESP 16
[2022-11-14] MEDS: LOSARTAN-HCTZ 50-12.5 MG 1 EACH TAB PO SCH (08:39)
[2022-11-14] MEDS: MULTIVITAMINS, THERA 1 EACH TAB PO SCH (08:39)
[2022-11-14] MEDS: ENOXAPARIN 40 MG/0.4 ML SYRINGE SQ SCH (08:39)
[2022-11-14] MEDS: LOSARTAN 50 MG TAB PO SCH (08:39)
--- NOTE | 2022-11-14 10:08 | CDI ---
Documentation Clarification Form Date: 11/14/2022 9:28:11 AM From: Gali Escobar RN CCDS Phone: [phone] Admit Date: 11/03/2022 1:38:00 AM Patient Name: Triny Camarillo Visit Number: [id number] Discharge Date: ATTENTION: The Clinical Documentation Specialists (CDI) and [facility] Coding Staff appreciate your assistance in clarifying documentation. Please respond to the clarification below the line at the bottom and electronically sign. The CDI & [facility] Coding staff will review the response and follow-up if needed. Please note: Queries are made part of the Legal Health Record. If you have any questions, please contact the author of this message via ITS. Dr. Rigo Marquez The Registered Dietitian assessment on 11/13 indicates this patient has inadequate energy intake. Based on this information and the findings below, is there an additional diagnosis that is clinically appropriate for this patient? History/Risk Factors: 82-year-old female presents to the ED as a transfer from [facility] with increasing abdominal pain associated with nausea and vomiting. CT of the abdomen showed multiple dilated small bowel loops. Air fluid levels. Medical History: HTN and HLD. Clinical Indicators: RD Consult Assessment: Current BMI: 22.9kg Nutritional assessment: Intake Poor; Percent consumed 25 50% Patient was eating 39% of regular diet downgraded to full liquid. Patient on TPN for four days. Physical findings: Constipation no BM or passing flatus. Patient reports no weight loss. Nutritional diagnosis: Inadequate energy intake: Related to Abdominal pain, nausea, vomiting, NPO for five days, Clear liquids for one day and TPN for four days. Treatment: Encourage Increasing ambulation and intake to maintain adequate nutrition. Dietary Consult: See above: Supplements: Ensure Clear when diet advances PPN/TPN: TPN running at 70ml an hour, Lipids twice weekly. Commercial beverage with diet. Monitor: TPN administration, diet advancement, TPN weaning, Initiation of Magic cups. Monitor: Electrolytes Is there an additional diagnosis that is clinically appropriate for this patient? [ ] Mild Protein-Calorie Malnutrition [ ] Moderate Protein-Calorie Malnutrition [ ] Severe Protein-Calorie Malnutrition [ + ] No additional diagnosis/Not clinically significant [ ] Other condition, please specify [ ] Unable to Determine (Template Last Revised: October 2020) MTDD
--- NOTE | 2022-11-14 11:13 | P.PN ---
Subjective Progress Note Date: 11/14/22 CHIEF COMPLAINT: SBO HISTORY OF PRESENT ILLNESS: Patient is postop day #6 status post exploratory laparotomy with lysis of adhesions and open cholecystectomy. Patient did have 3 bowel movements after Dulcolax suppository and lactulose. Patient reports her bloating feels better today. Denies any nausea or vomiting. She is tolerating diet. She is having flatus. She feels ready for discharge. PHYSICAL EXAM: VITAL SIGNS: Reviewed. GENERAL: Well-developed in no acute distress. HEENT: No sclera icterus. Extraocular movements grossly intact. Moist buccal mucosa. Head is atraumatic, normocephalic. ABDOMEN: Nondistended. Nontender. Prevana wound vac in place NEUROLOGIC: Alert and oriented. Cranial nerves II through XII grossly intact. ASSESSMENT: 1. Small bowel obstruction secondary to adhesions. Patient is status post lysis of adhesions 2. Hydropic gallbladder status post open cholecystectomy 3. History of abdominal surgery 4. Hypokalemia resolved PLAN: -Patient can be discharged from surgical standpoint -Diet advanced to regular -Wean off TPN -Remove Prevana wound vac before discharge -Colace added for constipation Physician Sheet Heater Helper note has been reviewed by physician. Signing provider agrees with the documented findings, assessment, and plan of care. Objective - Vital Signs Vital signs: Vital Signs Temp 98.0 F 11/14/22 07:05 Pulse 89 11/14/22 07:05 Resp 16 11/14/22 07:05 BP 129/71 11/14/22 07:05 Pulse Ox 98 11/14/22 07:05 FiO2 Intake & Output 11/13/22 11/14/22 11/14/22 18:59 06:59 18:59 Intake Total 472 959 Output Total 1 Balance 471 959 Weight 57.606 kg Intake: Intake, IV Titration 959 Amount Sodium Chloride 4Meq/ml 959 Vial 12 meq In Amino Acid 5%-D20w+Lytes*E* 1,000 ml @ 70 mls/hr IV .BY DURATION SHALA Rx#: [id number] Oral 472 Output: Stool 1 Other: # Voids 2 1 # Bowel Movements 1 - Labs CBC & Chem 7: 11/09/22 06:04 11/14/22 05:38 Labs: Abnormal Lab Results - Last 24 Hours (Table) 03/21/23 Range/Units 05:38 Sodium 132 L (137-145) mmol/L Chloride 96 L (98-107) mmol/L Creatinine 0.48 L (0.52-1.04) mg/dL Glucose 123 H (74-99) mg/dL
[2022-11-14] MEDS: PANTOPRAZOLE 40 MG/10 ML VIAL IVP SCH (11:51)
[2022-11-14 13:45] VITALS: BP 102/54; PULSE 86; TEMP 97.2
[2022-11-14] MEDS ORDERED: 1: MVI, ADULT NO.4 WITH VIT K 10 ML, TRACE (CONC-1ML/DOSE) 1 ML, SODIUM CHLORIDE 4MEQ/ML IV SCH ×8 (18:00)
--- NOTE | 2022-11-14 19:52 | P.DS ---
Providers Date of admission: 11/03/22 01:38 Expected date of discharge: 11/14/22 Attending physician: Rigo Marquez Consults: 11/13/22 07:41 Consult Physician Routine Consulting Provider: Vineet Patel Consult Reason/Comments: SBO Do you want consulting provider notified?: Already Contacted Primary care physician: [facility] Course: Chief Complaint: Abdominal pain This is a pleasant 82-year-old patient who follows with Dr. Nathan. Chronic stable medical conditions include hypertension, hyperlipidemia. 2 days patient had not been feeling well. She thought it was a viral bug. Subsequently around 2:00 in the morning she's developed increasing abdominal pain. With nausea vomiting. No fever no chills. Normally has a bowel movement every day. Small bowel in the morning.. Presented to [facility]. Computed tomography scan of the abdomen showed multiple dilated small bowel loops. Air-fluid levels. No transition point was seen. Patient was transferred down here for further intervention. General surgery was consulted. 11/04/2021 Patient presents with abdominal pain from [facility]. Patient today sitting in bed comfortable, she denies significant abdominal pain however she remains nothing by mouth. Also she denies melena in her bowel, since admission. She vomited once with a clear liquid last night but as above her abdominal pain is improving. Blood pressure is still high therefore we increased her clonidine patch 0.1-0.2 mg. Surgery team on the case 11/05/2022 Patient still complains from upper abdominal pain this morning, she's been having burning and some vomiting with bile. About twice earlier this morning. No bowel movement, she was started on lactulose Genetics on IV fluids, pain was controlled. Blood pressure is better controlled after increasing the dose of clonidine patch. 11/06/2022 Patient is currently able to ambulate in the hallway. No complaints of abdominal pain. No nausea or vomiting. Patient has not passed flatus yet. Bowel sounds are present. Patient is currently nothing by mouth and is being continued on IV hydration and pain medications as needed. Potassium level is 2.8 today which is being replaced. Patient has been afebrile. No cough or sputum production. Laboratory data showed sodium 137 potassium 2.8 chloride 103 bicarb is 18.6 BUN 10 and creatinine 0.5 and calcium 8.4. General surgery is on board. 11/07/2022: I resumed care of the patient today. Sitting up in a chair. She NG tube to suction. Had significant amount of diarrhea last night. Pending a computed tomography scan this afternoon. Family at the bedside. Abdominal pain better. 11/08/2022: Up in a chair. NG tube. Family the bedside. Flatus present. No abdominal pain. No nausea vomiting. Patient scheduled for surgery this afternoon. Had a lengthy discussion with the patient family the bedside. We will arrange for TPN starting tomorrow.. Communicated with the nurse and Gen. surgery. On D5W 11/09/2022: Patient underwent surgery yesterday. Lysis of adhesion. Open cholecystectomy. Started on clear liquids. at bedside. No nausea vomiting. Midline dressing. Binder. 11/10/2022: Up in a recliner. Clear liquid diet. Pain control. No flatus. Did ambulate. No nausea vomiting. 11/11/2022: Sitting up in the window bench. On liquid diet. No flatus. Did walk in the hallway. Discussed with patient at the bedside. Diet advanced per surgery. Getting IV TPN and lipids. 11/12/2022: Sitting up in a chair. Eating better. No flatus. And bleeding in the hallway. IV team and lipids. Patient scared to eat because of no BM. Did tell the patient that without flatus and BM a lot of discharge the patient. Keep up with activity. 11/13/2022: Up in a chair. Afraid to eat because of no BM. Had flatus. Has been ambulating. Getting TPN and lipids.. Abdominal x-ray from this morning no ileus. No nausea vomiting. No abdominal pain. 11/14/2022: Feeling well. Had a BM last evening and this morning. Pain well controlled. Cleared by surgery. Questions answered. Past medical history to include: Hyperlipidemia, hypertension, Social history: . Lives with her . No smoking or alcohol. Physical examination: VITAL SIGNS: 97.2, 86, 16, 102 x 54, 99% room air GENERAL: Sitting up in chair comfortable EYES: Pupils equal. Conjunctiva normal. HEENT: External appearance of nose and ears normal, NG tube. Oral cavity dry NECK: JVD not raised; masses not palpable. HEART: First and second heart sounds are normal; no edema. LUNGS: Respiratory rate normal; clear to auscultation. ABDOMEN: Soft, minimal tenderness, no guarding rigidity., liver spleen not palpable, no masses palpable. Midline dressing. Binder. PSYCH: Alert and oriented x3; mood and affect normal. MUSCULOSKELETAL:No Clubbing/cyanosis;muscles-grossly intact. 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 Partial small bowel obstruction. Colonic diverticulosis. Blood work from [facility] shows: Urine drug screen negative Sodium 134 potassium 4.4 creatinine 0.5. Glucose 66 White count 5 hemoglobin 13.9 platelets 216 UA: Ketones 3+ Computed tomography scan multiple dilated small bowel loops with air-fluid levels. No transition point. Assessment and plan: -Acute small bowel obstruction with air-fluid levels. No transition point.: Status post surgery November 08: Lysis of adhesions and open cholecystectomy by Dr. Patel. Regular diet. Had a BM. Follow up with Dr. Patel -Hypokalemia: Better -Essential hypertension Hyzaar 50/12.5. Cozaar -Hyperlipidemia Zocor -Hyponatremia, mild -Hypoalbuminemia, acute phase reactant -Hypoglycemia from poor oral intake: Better Disposition: Home Plan - Discharge Summary Discharge Rx Participant: Yes New Discharge Prescriptions: New Docusate [Colace] 100 mg PO BID #30 capsule Acetaminophen Tab [Tylenol] 650 mg PO Q6HR PRN tab PRN Reason: Mild Pain Or Fever >= 100.5 Continue Simvastatin [Zocor] 10 mg PO PC-LUNCH Losartan/Hydrochlorothiazide [Hyzaar 100-12.5 Tablet] 1 tab PO DAILY Calcium Carbonate [Calcium] 600 mg PO DAILY Multivitamins, Thera [Multivitamin (formulary)] 1 tab PO DAILY Discharge Medication List Simvastatin [Zocor] 10 mg PO PC-LUNCH 07/18/17 [History] Calcium Carbonate [Calcium] 600 mg PO DAILY 11/03/22 [History] Losartan/Hydrochlorothiazide [Hyzaar 100-12.5 Tablet] 1 tab PO DAILY 11/03/22 [History] Multivitamins, Thera [Multivitamin (formulary)] 1 tab PO DAILY 11/03/22 [History] Acetaminophen Tab [Tylenol] 650 mg PO Q6HR PRN tab 11/14/22 [Rx] Docusate [Colace] 100 mg PO BID #30 capsule 11/14/22 [Rx] Follow up Appointment(s)/Referral(s): Spike Nathan MD [Primary Care Provider] - 11/16/22 10:00 am (at [facility] [phone]) Vineet Patel MD [STAFF PHYSICIAN] - 11/24/22 8:30 am Activity/Diet/Wound Care/Special Instructions: No lifting over 10 pounds You may shower. No soaking or tub baths for 2 weeks Very light activity until you are reevaluated at your follow up appointment with your surgeon Discharge Disposition: HOME SELF-CARE
== END 2022-11-14 15:11 | disposition home or self-care (01) | DRG 336 ==
LOC: EC 01:03 → 4SSUR 01:38
PROVIDERS: ADMIT Hospitalist; ATTEND Hospitalist
PROC: 0FT40ZZ Resection of Gallbladder, Open Approach (ICD-10-PCS; 2022-11-08)
PROC: 0W9G0ZX Drainage of Peritoneal Cavity, Open Approach, Diagnostic (ICD-10-PCS; 2022-11-08)
PROC: 0FT40ZZ Resection of Gallbladder, Open Approach (ICD-10-PCS; 2022-11-08)
PROC: 0D9670Z Drainage of Stomach with Drainage Device, Via Natural or Artificial Opening (ICD-10-PCS; 2022-11-08)
PROC: 3E0T3BZ Introduction of Anesthetic Agent into Peripheral Nerves and Plexi, Percutaneous Approach (ICD-10-PCS; 2022-11-08)
PROC: 0DNB0ZZ Release Ileum, Open Approach (ICD-10-PCS; principal; 2022-11-08 08:30)
PROC: 02HV33Z Insertion of Infusion Device into Superior Vena Cava, Percutaneous Approach (ICD-10-PCS; 2022-11-09)
PROC: 3E0436Z Introduction of Nutritional Substance into Central Vein, Percutaneous Approach (ICD-10-PCS; 2022-11-09)
DX: K56.51 Intestinal adhesions [bands], with partial obstruction (principal); E87.1 Hypo-osmolality and hyponatremia; K82.1 Hydrops of gallbladder; R18.8 Other ascites; K81.1 Chronic cholecystitis; E88.09 Other disorders of plasma-protein metabolism, not elsewhere classified; I11.9 Hypertensive heart disease without heart failure; E87.6 Hypokalemia; E78.5 Hyperlipidemia, unspecified; K59.00 Constipation, unspecified; K57.30 Diverticulosis of large intestine without perforation or abscess without bleeding; R79.89 Other specified abnormal findings of blood chemistry; E16.2 Hypoglycemia, unspecified; R11.14 Bilious vomiting; Z79.899 Other long term (current) drug therapy; Z88.1 Allergy status to other antibiotic agents; Z86.19 Personal history of other infectious and parasitic diseases
CPT/HCPCS: 36573; 74019; 74176; 74177; 80048; 80053; 82330; 83735; 84100; 84132; 84478; 85025; 85027; 85610; 86850; 86900; 86901; 88304; 99285